=== PATIENT | male | born 1935 | race Caucasian/White ===

== ENCOUNTER → 2016-10-13 | Outpatient (CLI) | payer OTHER | LOC: LAB 15:25 | PROVIDERS: ATTEND Internal Medicine | DX: L89.321 Pressure ulcer of left buttock, stage 1 (principal); L89.311 Pressure ulcer of right buttock, stage 1 | CPT/HCPCS: 87070; 87077; 87185; 87186; 87205 ==

== ENCOUNTER → 2016-11-03 | Outpatient (CLI) | payer OTHER | LOC: MMPC 10:00 | PROVIDERS: ATTEND Podiatrist Foot & Ankle Surgery | DX: L60.3 Nail dystrophy (principal); L84 Corns and callosities; E11.9 Type 2 diabetes mellitus without complications; S90.412A Abrasion, left great toe, initial encounter | CPT/HCPCS: 11055; 11755; G0463 ==

== ENCOUNTER 2016-12-14 11:11 | Inpatient (IN) | payer OTHER ==
[2016-12-14] MEDS ORDERED: NORMAL SALINE 10 ML SYRINGE FLUSH IVP PRN ×2 (11:31→17:14)
[2016-12-14] MEDS ORDERED: Sodium Chloride 0.9% 1,000 ML PRIMARY IV ONE (11:34)
--- NOTE | 2016-12-14 11:51 | EKG ---
[address] [address] Measurements Intervals [place] Rate: 57 P: 65 MS: 213 QRS: -49 QRSD: 110 T: 10 QT: 432 QTc: 427 Interpretive Statements SINUS BRADYCARDIA WITH FIRST DEGREE AV BLOCK MARKED LEFT AXIS DEVIATION NONSPECIFIC T-WAVE ABNORMALITY Compared to ECG 06/02/2016 00:24:27 Sinus rhythm no longer present Intraventricular conduction delay no longer present Possible ischemia no longer present T-wave abnormality still present Electronically Signed On 12-14-16 12:59:00 MDT by Dmitri Murillo [email or web address]
[2016-12-14 11:58] LABS: HEMATOCRIT 42.9 % (42.0-52.0); MEAN CORPUSCULAR HEMOGLOBIN 30.2 PG (27-31); MEAN CORPUSCULAR HGB CONC 32.6 g/dL (33-37); MEAN CORPUSCULAR VOLUME 92.5 FL (80-90); MEAN PLATELET VOLUME 10.7 FL (7.4-12.2); RED BLOOD COUNT 4.64 10^6/uL (4.70-6.10)
[2016-12-14 12:08] LABS: BUN/CREATININE RATIO 25.38 (6-20); CALCIUM 9.5 mg/dL (8.7-10.7); SERUM ALBUMIN 3.9 g/dL (3.5-4.8)
[2016-12-14 12:14] LABS: BAND NEUTROPHILS % 0 % (0-10); BASOPHILS % (MANUAL) 0 % (0-1); EOSINOPHILS % (MANUAL) 2 % (0-8); LYMPHOCYTES % (MANUAL) 20 % (10-50); MONOCYTES % (MANUAL) 14 % (0-12); NEUTROPHILS % (MANUAL) 64 % (50-80); PLATELET MORPHOLOGY COMMENT NORMAL MORPHOLOGY (NORM); RBC MORPHOLOGY COMMENT NORMAL MORPHOLOGY (NORM); WBC MORPHOLOGY COMMENT NORMAL MORPHOLOGY (NORM)
--- NOTE | 2016-12-14 12:39 | DI ---
HISTORY: Fall, confusion. FINDINGS: Mild cardiomegaly is noted with atheromatous changes of the dorsal aorta. There is sligh t accentuation of the pulmonary vasculature in both lung bases. The lung amaya are otherwise essent ially clear. IMPRESSION: 1. Slight accentuation of the pulmonary vasculature bilateral lung bases.
--- NOTE | 2016-12-14 12:43 | DI ---
HISTORY: Pain after fall. FINDINGS: Examination reveals demineralization and degenerative arthritic changes. There is evidenc e of old left hip pinning. There is no definite evidence of recent fracture or dislocation. IMPRESSION: 1. No displaced acute fractures identified. If symptoms should persist, a follow up examination is suggested.
--- NOTE | 2016-12-14 14:59 | DI ---
HISTORY: Pain after fall. FINDINGS: Examination reveals demineralization and degenerative arthritic changes. There is no def inite evidence of recent fracture or dislocation. IMPRESSION: 1. No acute fractures identified.q
--- NOTE | 2016-12-14 15:01 | DI ---
HISTORY: Pain after fall. FINDINGS: Examination reveals mild soft tissue swelling. There are mild degenerative arthritic wang ges with no definite evidence of recent fracture or dislocation. IMPRESSION: 1. Mild soft tissue swelling without acute fracture.
--- NOTE | 2016-12-14 15:02 | DI ---
HISTORY: Pain after fall. FINDINGS: Examination reveals mild soft tissue swelling. There is no definite evidence of recent fr acture or dislocation. IMPRESSION: 1. Mild soft tissue swelling without acute fracture.
--- NOTE | 2016-12-14 15:05 | DI ---
HISTORY: Pain after fall. FINDINGS: Examination reveals soft tissue swelling. There is no definite evidence of recent fractur e or dislocation. IMPRESSION: 1. Soft tissue swelling without acute fracture. If symptoms should persist a follow up examination after a suitable period of immobilization is suggested.
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
[2016-12-14 15:48] LABS: COLOR,URINE YELLOW; URINE SAMPLE TYPE CATH SPECIMEN
[2016-12-14 15:49] LABS: BILIRUBIN,URINE NEGATIVE (NEG); CLARITY,URINE CLEAR (CLEAR); GLUCOSE, URINE (UA) >=1000 mg/dL (NEG); NITRATE,URINE NEGATIVE (NEG); OCCULT BLOOD,URINE NEGATIVE (NEG); PROTEIN,URINE 100 mg/dl (NEG)
[2016-12-14 15:50] LABS: RBC,URINE 0-3 /hpf; UROBILINOGEN,URINE 0.2 EU/dL (0.2)
[2016-12-14] MEDS ORDERED: INSULIN REGULAR, HUMAN 100 UNIT/1 ML - 3 ML IV ONE (15:52)
[2016-12-14] MEDS ORDERED: Insulin Detemir 300unit/3ml Flexpen SUBCUT ONE (15:54)
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
[2016-12-14] MEDS ORDERED: LORazepam 2 MG/1 ML VIAL ONE (16:37)
[2016-12-14] MEDS ORDERED: LORazepam 2 MG/1 ML VIAL IVP ONE ×2 (16:40→16:45)
[2016-12-14] MEDS ORDERED: HALOPERIDOL LACTATE 5 MG/1 ML AMPULE IVP ONE (16:47)
--- NOTE | 2016-12-14 16:49 | DI ---
HISTORY: Likely right hip fracture. PREVIOUS EXAM: None at this facility. TECHNIQUE: Multiple helically acquired CT images are obtained through the pelvis without contrast. FINDINGS: CT images demonstrate a right intertrochanteric fracture through the right proximal femur with mild comminution and mild displacement. The superior and inferior pubic rami are intact except for some enthesopathy. There is an old left femoral neck fracture with a dynamic compression screw in place. A Das catheter is seen within the urinary bladder. Degenerative changes of the sacroiliac joints and lower lumbar spine are noted. IMPRESSION: 1. Slightly displaced and comminuted fracture through the right proximal femoral intertrochanteric f racture.
[2016-12-14] MEDS ORDERED: HALOPERIDOL 5 MG TABLET PO ONE (16:50)
[2016-12-14] MEDS ORDERED: LIDOCAINE W/ SODIUM BICARB 0.5 ML SYR SUBD PRN (17:14)
[2016-12-14] MEDS ORDERED: HYDROcodone-APAP 5 MG -325 MG TABLET PO PRN (17:21)
[2016-12-14] MEDS ORDERED: LORazepam 2 MG/1 ML VIAL IVP PRN (17:28)
[2016-12-14] MEDS: Sodium Chloride 0.9% 1,000 ML PRIMARY IV SCH (18:15)
[2016-12-14] MEDS ORDERED: TAMSULOSIN 0.4 MG CAPSULE PO SCH (21:00)
[2016-12-14] MEDS: HYDROmorphone 2 MG/1 ML IVP PRN (21:35)
[2016-12-15] MEDS: HYDROmorphone 2 MG/1 ML IVP PRN ×2 (04:03→08:13)
[2016-12-15 05:01] LABS: BASOPHILS # (AUTO) 0.09 10*3/UL; BASOPHILS % (AUTO) 0.7 % (0-1); EOSINOPHILS # (AUTO) 0.23 10*3/UL; EOSINOPHILS % (AUTO) 1.9 % (0-8); HEMATOCRIT 38.2 % (42.0-52.0); HEMOGLOBIN 12.6 g/dL (14.0-18.0); LYMPHOCYTES # (AUTO) 1.57 10*3/uL; MEAN CORPUSCULAR HEMOGLOBIN 30.4 PG (27-31); MEAN PLATELET VOLUME 11.4 FL (7.4-12.2); MONOCYTES # (AUTO) 1.49 10*3/UL (0.3-0.8); MONOCYTES % (AUTO) 12.3 % (5-15); NEUTROPHILS # (AUTO) 8.72 10*3/UL; NEUTROPHILS % (AUTO) 71.9 % (50-80); RED BLOOD COUNT 4.15 10^6/uL (4.70-6.10)
[2016-12-15 05:02] LABS: PLATELET MORPHOLOGY COMMENT NORMAL MORPHOLOGY (NORM); RBC MORPHOLOGY COMMENT NORMAL MORPHOLOGY (NORM); WBC MORPHOLOGY COMMENT NORMAL MORPHOLOGY (NORM)
[2016-12-15] MEDS: Sodium Chloride 0.9% 1,000 ML PRIMARY IV SCH ×2 (05:05→16:58)
[2016-12-15 05:22] LABS: BUN/CREATININE RATIO 26.66 (6-20)
[2016-12-15] MEDS ORDERED: LEVOTHYROXINE 25 MCG TABLET PO SCH (05:30)
--- NOTE | 2016-12-15 07:55 | PDOC(PROG) ---
Date and Time of Service: 12/15/2016 7:54 AM Interval History: Subjective Patient did need some Ativan during the night, today he still wants to get up despite our attempt to explain to him that he has a broken hip. We gave him Ativan to calm him down. Objective : Data - Labs CBC and BMP: 12/15/16 04:13 12/15/16 04:13 Labs - Last 24 Hours: Laboratory Results 12/15/16 Range/Units 04:13 WBC 12.14 H (4.8-10.8) 10^3/uL RBC 4.15 L (4.70-6.10) 10^6/uL Hgb 12.6 L (14.0-18.0) g/dL Hct 38.2 L (42.0-52.0) % MCV 92.0 H (80-90) FL MCH 30.4 (27-31) PG MCHC 33.0 (33-37) g/dL RDW Std Deviation 48.4 (39-50) fL RDW Coeff of Virgilio 14.8 H (11.5-14.5) % Plt Count 250 (140-350) 10*3/uL MPV 11.4 (7.4-12.2) FL Immature Gran % (Auto) 0.3 (0-5) % Neut % (Auto) 71.9 (50-80) % Lymph % (Auto) 12.9 (10-50) % [place] % (Auto) 12.3 (5-15) % Eos % (Auto) 1.9 (0-8) % Baso % (Auto) 0.7 (0-1) % Immature Gran # (Auto) 0.04 10*3/UL Neut # (Auto) 8.72 10*3/UL Lymph # (Auto) 1.57 10*3/uL [place] # (Auto) 1.49 H (0.3-0.8) 10*3/UL Eos # (Auto) 0.23 10*3/UL Baso # (Auto) 0.09 10*3/UL WBC Morphology Comment Normal morphology (NORM) Plt Morphology Comment Normal morphology (NORM) RBC Morph Comment Normal morphology (NORM) Sodium 141 (135-145) meq/L Potassium 4.6 (3.8-5.2) meq/L Chloride 108 (98-112) meq/L Carbon Dioxide 22 L (23-33) meq/L Anion Gap 11 (5-20) BUN 24 H (7-22) mg/dL Creatinine 0.9 (0.70-1.50) mg/dL Estimated GFR (>60 ml/min/1.73m(2)) BUN/Creatinine Ratio 26.66 H (6-20) Glucose 142 H (78-110) mg/dL Calculated Osmolality 297.0 H (267-292) mOsm/kg Calcium 9.0 (8.7-10.7) mg/dL Blood Type O NEGATIVE Antibody Screen Negative Objective : Exam - General Additional General Exam Details: Restless but is not as agitated as yesterday - Head Head Exam: Normal Inspection - Eye Eye Exam: Normal Appearance - ENT ENT Exam: Normal Exam - Neck Neck Exam: Normal Inspection - Respiratory Respiratory Exam: Clear to Auscultation - Bilaterally - Cardiovascular Cardiovascular Exam: RRR - GI/Abdominal GI/Abdominal Exam: Normal Bowel Sounds, Non Tender, Non Distended, Soft - Rectal Rectal Exam: Deferred - External Exam: Deferred - Extremities Additional Extremities Exam Details: No edema noted - Neurological Neurological Exam: Alert, CN II-XII Intact Additional Neurological Exam Details: Restless. Not as agitated as yesterday - Integumentary Integumentary Exam: Normal Color Assessment and Plan - Patient Problems (1) Hip fracture Current Visit: Yes Status: Acute Comment: He will have the surgery today. As I said in my notes he can proceed with surgery will deal with any complications if they develop postoperatively Qualifiers: Encounter type: initial encounter Fracture type: closed Laterality : right Qualifier Code(s): (S72.001A) Fracture of unspecified part of neck of right femur, initial encounter for closed fracture (2) Diabetes Current Visit: No Status: Acute Comment: He is on sliding scale continue (3) Dementia with behavioral disturbance Current Visit: Yes Status: Acute Comment: He is on Ativan as needed (4) Hypothyroidism Current Visit: Yes Status: Acute Comment: Resume his levothyroxin postsurgery
--- NOTE | 2016-12-15 07:57 | ORTHO.CON ---
Consult Note - Consult Consult Date: 12/14/16 Reason for Consult: PreOp Consulation : Ortho (Consult for Dr. Tyler) Primary Care Provider: Leander Marie MD - History of Present Illness History of Present Illness: Patient is an 81-year-old male with severe dementia in the Alzheimer unit at [facility] who sustained a fall approximately 4 days prior to presenting to the emergency room. After continued pain and discomfort he is brought to the emergency room x-rays were taken the initial reading was no fracture but a CT scan was obtained which confirmed a fracture. He was admitted for further care and treatment. Patient has not been ambulatory and has been in a wheelchair for some time since his last surgery. Past Medical History Medical History: 1. Diabetes on insulin. 2. Dementia. 3. Hypertension. 4. Hypothyroidism Surgical History: 1. Surgery for displaced left subtrochanteric hip fracture in May 2016 Pertinent Family History: unknown Tobacco Use: Former Smoker Substance Use Type: None Alcohol Use: None Medication / Allergies Home Medications: Home Medications Medication Instructions Recorded Confirmed Type Acetaminophen [Tylenol] 1 - 2 tab PO Q4-6H PRN tab 11/15/14 12/14/16 History Losartan Potassium 1 tab PO QD tab 03/06/15 12/14/16 History Dextran 70/Hypromellose/Pf [Tears 1 drp OP QID PRN #1 bottle 09/16/15 12/14/16 Clinic Naturale Free Drops] Tamsulosin HCl 1 cap PO QHS cap 12/05/15 12/14/16 History Loratadine 1 tab PO QD tab 01/07/16 12/14/16 History Insulin Aspart [Novolog] 20 unit SUBCUT TID vial 04/20/16 12/14/16 History Docusate Sodium [Colace] 1 cap PO BID cap 06/09/16 12/14/16 History Ferrous Sulfate [Feosol] 325 mg PO DAILY tab 06/09/16 12/14/16 Rx HYDROcodone/APAP 5/325 Tab [[place] 1 - 2 tab PO Q4H PRN #25 tab 06/09/16 Rx 5/325 Tab] Insulin Detemir [Levemir Flextouch] 25 unit SUBCUT QD unit 06/09/16 12/14/16 History Magnesium Hydroxide [Milk Of 30 ml PO QD PRN ml 06/09/16 12/14/16 History Magnesia] Multivitamin Tab [Thera Tab] 1 tab PO DAILY tab 06/09/16 12/14/16 Rx Sitagliptin Phosphate [Januvia] 100 mg PO DAILY #1 tablet 06/09/16 12/14/16 Rx Levothyroxine Sodium 1 tab PO DAILY #30 tab 08/19/16 12/14/16 Clinic Ranitidine HCl 150 mg PO QD #30 cap 09/29/16 12/14/16 Clinic Amoxicillin 250 mg PO TID 12/14/16 12/14/16 History Mupirocin Ointment 2% [Bactroban 22 applic TOPICAL PRN PRN 12/14/16 12/14/16 History Ointment 2%] Sulfameth/Trimeth 800/160 Tab 1 each PO BID 12/14/16 12/14/16 History [Bactrim DS 800/160 Tab] Allergies/Adverse Reactions: Allergies Allergy/AdvReac Type Severity Reaction Status Date / Time lactose Allergy DIARRHEA Verified 12/14/16 18:48 Exam - - Exam: Examination shows that the patient has well-healed incisions on the left than the right he has no marked deformity to the leg but with movement of the leg has pain and discomfort he has limited motion of the toes and ankle secondary pain and limited motion of the knee secondary pain on no effusion of the knee. He seems to grimace a little with palpation around the right hip. Patient is alert however he is not oriented and cannot follow simple commands and at times seems agitated. Laboratory Results 12/14/16 12/14/16 12/15/16 Range/Units 11:53 15:35 04:13 WBC 10.84 H 12.14 H (4.8-10.8) 10^3/uL RBC 4.64 L 4.15 L (4.70-6.10) 10^6/uL Hgb 14.0 12.6 L (14.0-18.0) g/dL Hct 42.9 38.2 L (42.0-52.0) % MCV 92.5 H 92.0 H (80-90) FL MCH 30.2 30.4 (27-31) PG MCHC 32.6 L 33.0 (33-37) g/dL RDW Std Deviation 49.2 48.4 (39-50) fL RDW Coeff of Virgilio 15.0 H 14.8 H (11.5-14.5) % Plt Count 257 250 (140-350) 10*3/uL MPV 10.7 11.4 (7.4-12.2) FL Immature Gran % (Auto) 0.3 (0-5) % Neut % (Auto) 71.9 (50-80) % Lymph % (Auto) 12.9 (10-50) % [place]ess % (Auto) 12.3 (5-15) % Eos % (Auto) 1.9 (0-8) % Baso % (Auto) 0.7 (0-1) % Immature Gran # (Auto) 0.04 10*3/UL Neut # (Auto) 8.72 10*3/UL Lymph # (Auto) 1.57 10*3/uL [place] # (Auto) 1.49 H (0.3-0.8) 10*3/UL Eos # (Auto) 0.23 10*3/UL Baso # (Auto) 0.09 10*3/UL Neutrophils % (Manual) 64 (50-80) % Band Neutrophils % 0 (0-10) % Lymphocytes % (Manual) 20 (10-50) % Monocytes % (Manual) 14 H (0-12) % Eosinophils % (Manual) 2 (0-8) % Basophils % (Manual) 0 (0-1) % Metamyelocytes % Not Reportable Myelocytes % Not Reportable Promyelocytes % Not Reportable Blast Cells Not Reportable WBC Morphology Comment Normal morphology Normal morphology (NORM) Plt Morphology Comment Normal morphology Normal morphology (NORM) RBC Morph Comment Normal morphology Normal morphology (NORM) PT 10.2 (9.7-11.4) secs INR 0.99 (0.00-5.90) N/A Sodium 141 141 (135-145) meq/L Potassium 4.6 4.6 (3.8-5.2) meq/L Chloride 101 108 (98-112) meq/L Carbon Dioxide 26 22 L (23-33) meq/L Anion Gap 14 11 (5-20) BUN 33 H 24 H (7-22) mg/dL Creatinine 1.3 0.9 (0.70-1.50) mg/dL Estimated GFR (>60 ml/min/1.73m(2)) BUN/Creatinine Ratio 25.38 H 26.66 H (6-20) Glucose 252 H 142 H (78-110) mg/dL Calculated Osmolality 307.0 H 297.0 H (267-292) mOsm/kg Calcium 9.5 9.0 (8.7-10.7) mg/dL Total Bilirubin 0.5 (0.3-1.2) mg/dL AST 14 L (21-57) IU/L ALT 21 (21-72) IU/L Alkaline Phosphatase 185 H (38-126) IU/L Total Protein 7.3 (6.1-8.0) g/dL Albumin 3.9 (3.5-4.8) g/dL Globulin 3.4 (2.50-4.10) g/dL Albumin/Globulin Ratio 1.10 L (1.3-2.0) mg/g Ur Collection Type Cath specimen Urine Color Yellow Urine Clarity Clear (CLEAR) Urine pH 6.0 (5.0-8.5) Ur Specific Ashley 1.020 (1.005-1.030) Urine Protein 100 (NEG) mg/dl Urine Glucose (UA) >=1000 (NEG) mg/dL Urine Ketones Trace (NEG) Urine Occult Blood Negative (NEG) Urine Nitrate Negative (NEG) Urine Bilirubin Negative (NEG) Urine Urobilinogen 0.2 (0.2) EU/dL Ur Leukocyte Esterase Negative (NEG) Urine RBC 0-3 (NONE) /hpf Urine WBC None (NONE) Ur Squamous Epith Cells None (NONE) Ur Renal Epithelial Cell None (NONE) Urine Crystals None Urine Bacteria None (NONE) Urine Casts None (NONE) Urine Mucus None (NONE) Urine Trichomonas None (NONE) Urine Yeast None (NONE) Ur Culture Indicated? Culture not set Blood Type O NEGATIVE Antibody Screen Negative - Vitals Vital Signs: Vital Signs Temperature 98.7 F Temperature Source Temporal Artery Scan Pulse Rate [Pulse Oximeter] 73 Pulse Rate 62 Respiratory Rate 20 Blood Pressure [Right Arm] 121/51 Blood Pressure 150/80 Pulse Ox 93 Oxygen Delivery Method Room Air Height 5 ft 11 in Weight 77.292 kg Results - Labs CBC and BMP: 12/15/16 04:13 12/15/16 04:13 Labs - Last 24 Hours: Laboratory Results 12/15/16 Range/Units 04:13 WBC 12.14 H (4.8-10.8) 10^3/uL RBC 4.15 L (4.70-6.10) 10^6/uL Hgb 12.6 L (14.0-18.0) g/dL Hct 38.2 L (42.0-52.0) % MCV 92.0 H (80-90) FL MCH 30.4 (27-31) PG MCHC 33.0 (33-37) g/dL RDW Std Deviation 48.4 (39-50) fL RDW Coeff of Virgilio 14.8 H (11.5-14.5) % Plt Count 250 (140-350) 10*3/uL MPV 11.4 (7.4-12.2) FL Immature Gran % (Auto) 0.3 (0-5) % Neut % (Auto) 71.9 (50-80) % Lymph % (Auto) 12.9 (10-50) % Ness % (Auto) 12.3 (5-15) % Eos % (Auto) 1.9 (0-8) % Baso % (Auto) 0.7 (0-1) % Immature Gran # (Auto) 0.04 10*3/UL Neut # (Auto) 8.72 10*3/UL Lymph # (Auto) 1.57 10*3/uL Ness # (Auto) 1.49 H (0.3-0.8) 10*3/UL Eos # (Auto) 0.23 10*3/UL Baso # (Auto) 0.09 10*3/UL WBC Morphology Comment Normal morphology (NORM) Plt Morphology Comment Normal morphology (NORM) RBC Morph Comment Normal morphology (NORM) Sodium 141 (135-145) meq/L Potassium 4.6 (3.8-5.2) meq/L Chloride 108 (98-112) meq/L Carbon Dioxide 22 L (23-33) meq/L Anion Gap 11 (5-20) BUN 24 H (7-22) mg/dL Creatinine 0.9 (0.70-1.50) mg/dL Estimated GFR (>60 ml/min/1.73m(2)) BUN/Creatinine Ratio 26.66 H (6-20) Glucose 142 H (78-110) mg/dL Calculated Osmolality 297.0 H (267-292) mOsm/kg Calcium 9.0 (8.7-10.7) mg/dL Blood Type O NEGATIVE Antibody Screen Negative Assessment and Plan - Assessment / Plan Additional Assessment/Plan Details: Impression: A right intertrochanteric hip fracture comminuted with some mild subtrochanteric extension but nondisplaced Advanced dementia Plan: We'll proceed with getting the patient set up for stabilization of the hip fracture with a cephalo-medullary nail. Patient had a similar process 6 months ago on the left. This is purely for comfort standpoint.
[2016-12-15] MEDS: Insulin Lispro Flexpen 300 UNIT/3 ML INSULN.PEN SUBCUT SCH ×4 (08:15→21:21)
[2016-12-15] MEDS ORDERED: Mupirocin Nasal Oint 2% 1 gm Tube ENOS SCH (09:00)
[2016-12-15] MEDS ORDERED: Chlorhexidine Gluc Soap 4% 15 ML LIQUID TOPICAL SCH (09:00)
[2016-12-15] MEDS ORDERED: Lactated Ringers 1,000 ML PRIMARY IV ONE (11:09)
[2016-12-15] MEDS ORDERED: ceFAZolin Inj 2gm (Premix) 50 ML IV ONE (11:11)
[2016-12-15] MEDS ORDERED: Sodium Chloride 0.9% 1,000 ML ONE (12:08)
[2016-12-15] MEDS ORDERED: BACITRACIN 50,000 UNIT VIAL IRRIG ONE (12:21)
[2016-12-15] MEDS ORDERED: Sodium Chloride 0.9% vial 20 ML ONE (12:21)
[2016-12-15] MEDS ORDERED: HYDROmorphone 2 MG/1 ML IVP PRN (12:25)
[2016-12-15] MEDS ORDERED: NORMAL SALINE 10 ML SYRINGE FLUSH IVP PRN (12:25)
[2016-12-15] MEDS ORDERED: MIDAZOLAM HCL 50 MG/10 ML VIAL IVP PRN (12:25)
[2016-12-15] MEDS ORDERED: Sodium Chloride 0.9% 1,000 ML PRIMARY IV SCH (12:30)
[2016-12-15] MEDS ORDERED: LIDOCAINE MPF 2% - 5 ML (20 MG/1 ML) ONE (12:37)
[2016-12-15] MEDS ORDERED: fentaNYL Inj 250 MCG/5 ML VIAL ONE (12:37)
[2016-12-15] MEDS ORDERED: MIDAZOLAM 5 MG/1 ML ONE (12:37)
[2016-12-15] MEDS ORDERED: Sodium Chloride 0.9% 0 ML IV ONE (12:54)
[2016-12-15] MEDS ORDERED: BUPIVACAINE 0.25% W/ EPI - 10 ML VIAL ONE (13:25)
[2016-12-15] MEDS ORDERED: KETAMINE 100 MG/1 ML - 5 ML ONE (13:39)
[2016-12-15] MEDS ORDERED: ePHEDrine Inj 50 MG/ML AMP ONE (13:41)
[2016-12-15] MEDS ORDERED: GLYCOPYRROLATE 0.2 MG/1 ML VIAL ONE (13:51)
[2016-12-15] MEDS ORDERED: CALCIUM CARBONATE 500 MG (TUMS) CHEWABLE TABLET PO PRN (16:52)
[2016-12-15] MEDS ORDERED: Prochlorperazine Tab 10 MG TAB PO PRN (16:52)
[2016-12-15] MEDS ORDERED: MAG HYDROX/AL HYDROX/SIMETH 30 ML SUSP PO PRN (16:52)
[2016-12-15] MEDS ORDERED: Mupirocin Ointment 2% 22 gm Tube TOPICAL PRN (16:52)
[2016-12-15] MEDS ORDERED: LORATADINE 10 MG TABLET PO SCH (16:52)
[2016-12-15] MEDS ORDERED: MAGNESIUM 400 MG/5 ML - 30 ML (MILK OF MAGNESIA) PO PRN (16:52)
[2016-12-15] MEDS ORDERED: BISACODYL 5 MG TABLET PO PRN (16:52)
[2016-12-15] MEDS ORDERED: diphenhydrAMINE 25 MG CAPSULE PO PRN (16:52)
[2016-12-15] MEDS ORDERED: Ondansetron ODT Tab 8 MG TAB PO PRN (16:52)
[2016-12-15] MEDS ORDERED: IBUPROFEN 400 MG TABLET PO PRN (16:52)
[2016-12-15] MEDS ORDERED: BISACODYL 10 MG SUPPOSITORY RECTAL PRN (16:52)
[2016-12-15] MEDS ORDERED: ONDANSETRON 4 MG/2 ML VIAL IVP PRN (16:52)
[2016-12-15] MEDS ORDERED: Non-Formulary Drug (Losartan Potassium [Losartan Potassium] 1 TAB) PO SCH (16:52)
[2016-12-15] MEDS: Lactated Ringers 1,000 ML PRIMARY IV SCH (17:30)
[2016-12-15] MEDS ORDERED: LORazepam 2 MG/1 ML VIAL IVP PRN (18:38)
[2016-12-15] MEDS ORDERED: Insulin Detemir 300unit/3ml Flexpen SUBCUT SCH (21:00)
[2016-12-15] MEDS ORDERED: AMOXICILLIN 500 MG CAPSULE PO SCH (21:00)
[2016-12-15] MEDS ORDERED: INSULIN ASPART 20 UNIT SUBCUT SCH (21:00)
[2016-12-15] MEDS ORDERED: SULFAMETHOXAZOLE/TRIMETHOPRIM 800/160 MG TABLET PO SCH (21:00)
[2016-12-15] MEDS ORDERED: DOCUSATE 100 MG CAPSULE PO SCH (21:00)
[2016-12-15] MEDS: ceFAZolin Inj 2gm (Premix) 2 GM in Dextrose 1 BAG IV SCH (21:19)
[2016-12-15] MEDS: Mupirocin Nasal Oint 2% 1 gm Tube ENOS SCH (21:19)
[2016-12-15] MEDS: Insulin Detemir 300unit/3ml Flexpen SUBCUT SCH (21:21)
[2016-12-15] MEDS: MORPHINE SULFATE 2 MG/1 ML IVP PRN ×2 (21:36→23:10)
[2016-12-15] MEDS: DOCUSATE 100 MG CAPSULE PO SCH (21:53)
[2016-12-16] MEDS: Lactated Ringers 1,000 ML PRIMARY IV SCH ×3 (01:40→11:22)
[2016-12-16] MEDS: MORPHINE SULFATE 2 MG/1 ML IVP PRN ×6 (02:22→23:17)
[2016-12-16] MEDS: ceFAZolin Inj 2gm (Premix) 2 GM in Dextrose 1 BAG IV SCH (04:41)
[2016-12-16 04:49] LABS: BASOPHILS # (AUTO) 0.11 10*3/UL; BASOPHILS % (AUTO) 0.8 % (0-1); EOSINOPHILS # (AUTO) 0.16 10*3/UL; EOSINOPHILS % (AUTO) 1.2 % (0-8); HEMATOCRIT 35.3 % (42.0-52.0); HEMOGLOBIN 11.7 g/dL (14.0-18.0); LYMPHOCYTES # (AUTO) 1.24 10*3/uL; MEAN CORPUSCULAR HEMOGLOBIN 30.4 PG (27-31); MEAN CORPUSCULAR HGB CONC 33.1 g/dL (33-37); MEAN CORPUSCULAR VOLUME 91.7 FL (80-90); MEAN PLATELET VOLUME 11.1 FL (7.4-12.2); MONOCYTES % (AUTO) 10.4 % (5-15); NEUTROPHILS # (AUTO) 10.53 10*3/UL; RED BLOOD COUNT 3.85 10^6/uL (4.70-6.10)
[2016-12-16 04:52] LABS: PLATELET MORPHOLOGY COMMENT NORMAL MORPHOLOGY (NORM); RBC MORPHOLOGY COMMENT NORMAL MORPHOLOGY (NORM); WBC MORPHOLOGY COMMENT NORMAL MORPHOLOGY (NORM)
[2016-12-16 04:54] LABS: BUN/CREATININE RATIO 21.11 (6-20); CALCIUM 8.4 mg/dL (8.7-10.7)
[2016-12-16] MEDS: Insulin Lispro Flexpen 300 UNIT/3 ML INSULN.PEN SUBCUT SCH ×4 (08:26→21:55)
--- NOTE | 2016-12-16 08:49 | CRNA.PROGR ---
Anesthesia Note Anesthesia Progress Note: Resting in bed. did not awaken due to his mental status. Laboratory Results 12/16/16 Range/Units 04:18 WBC 13.49 H (4.8-10.8) 10^3/uL RBC 3.85 L (4.70-6.10) 10^6/uL Hgb 11.7 L (14.0-18.0) g/dL Hct 35.3 L (42.0-52.0) % MCV 91.7 H (80-90) FL MCH 30.4 (27-31) PG MCHC 33.1 (33-37) g/dL RDW Std Deviation 47.1 (39-50) fL RDW Coeff of Virgilio 14.4 (11.5-14.5) % Plt Count 238 (140-350) 10*3/uL MPV 11.1 (7.4-12.2) FL Immature Gran % (Auto) 0.4 (0-5) % Neut % (Auto) 78.0 (50-80) % Lymph % (Auto) 9.2 L (10-50) % [place] % (Auto) 10.4 (5-15) % Eos % (Auto) 1.2 (0-8) % Baso % (Auto) 0.8 (0-1) % Immature Gran # (Auto) 0.05 10*3/UL Neut # (Auto) 10.53 10*3/UL Lymph # (Auto) 1.24 10*3/uL [place] # (Auto) 1.40 H (0.3-0.8) 10*3/UL Eos # (Auto) 0.16 10*3/UL Baso # (Auto) 0.11 10*3/UL WBC Morphology Comment Normal morphology (NORM) Plt Morphology Comment Normal morphology (NORM) RBC Morph Comment Normal morphology (NORM) Sodium 137 (135-145) meq/L Potassium 4.2 (3.8-5.2) meq/L Chloride 107 (98-112) meq/L Carbon Dioxide 24 (23-33) meq/L Anion Gap 6 (5-20) BUN 19 (7-22) mg/dL Creatinine 0.9 (0.70-1.50) mg/dL Estimated GFR (>60 ml/min/1.73m(2)) BUN/Creatinine Ratio 21.11 H (6-20) Glucose 179 H (78-110) mg/dL Calculated Osmolality 289.0 (267-292) mOsm/kg Calcium 8.4 L (8.7-10.7) mg/dL Labs appear acceptable. No apparent anesthetic difficulties.
--- NOTE | 2016-12-16 08:59 | DI ---
HISTORY: Tachypnea. COMPARISON: None available. FINDINGS: Mild cardiomegaly is noted with atheromatous changes of the dorsal aorta. There appears t o be an early infiltrate in the left lung base. The lung amaya are otherwise essentially clear. IMPRESSION: 1. Mild cardiomegaly is noted with atheromatous changes of the dorsal aorta. 2. There appears to be an early infiltrate in the left lung base. Clinical correlation is requested.
[2016-12-16] MEDS ORDERED: sitaGLIPtin Tab 100 MG TAB PO SCH (09:00)
[2016-12-16] MEDS: DOCUSATE 100 MG CAPSULE PO SCH ×2 (10:36→21:52)
[2016-12-16] MEDS: FERROUS SULFATE 325 MG TABLET PO SCH (10:37)
[2016-12-16] MEDS: ASPIRIN 325 MG EC TABLET PO SCH ×2 (10:37→21:52)
[2016-12-16] MEDS: LORATADINE 10 MG TABLET PO SCH (10:37)
[2016-12-16] MEDS: LOSARTAN 50 MG TABLET PO SCH (10:37)
[2016-12-16] MEDS: Multivitamin Tab 1 TAB PO SCH (10:37)
[2016-12-16] MEDS: Mupirocin Nasal Oint 2% 1 gm Tube ENOS SCH ×2 (10:43→21:53)
[2016-12-16] MEDS ORDERED: Vancomycin-PHA to Dose IV PRN (12:03)
[2016-12-16] MEDS ORDERED: Sodium Chloride 0.9% 100 ML IV ONE (12:18)
[2016-12-16] MEDS: ACETAMINOPHEN 325 MG TABLET PO PRN (12:18)
[2016-12-16] MEDS: Piperacillin/Tazobactam Inj 3.375 GM in Sodium Chloride 0.9% 100 ML IV SCH ×2 (12:28→17:16)
--- NOTE | 2016-12-16 15:43 | PDOC(PROG) ---
Date and Time of Service: 12/16/2016 Interval History: Subjective Patient is sedated, he mumbles but I can not understand him. he is tachypenic. Objective : Data - Labs CBC and BMP: 12/16/16 04:18 12/16/16 04:18 Labs - Last 24 Hours: Laboratory Results 12/16/16 Range/Units 04:18 WBC 13.49 H (4.8-10.8) 10^3/uL RBC 3.85 L (4.70-6.10) 10^6/uL Hgb 11.7 L (14.0-18.0) g/dL Hct 35.3 L (42.0-52.0) % MCV 91.7 H (80-90) FL MCH 30.4 (27-31) PG MCHC 33.1 (33-37) g/dL RDW Std Deviation 47.1 (39-50) fL RDW Coeff of Virgilio 14.4 (11.5-14.5) % Plt Count 238 (140-350) 10*3/uL MPV 11.1 (7.4-12.2) FL Immature Gran % (Auto) 0.4 (0-5) % Neut % (Auto) 78.0 (50-80) % Lymph % (Auto) 9.2 L (10-50) % [place] % (Auto) 10.4 (5-15) % Eos % (Auto) 1.2 (0-8) % Baso % (Auto) 0.8 (0-1) % Immature Gran # (Auto) 0.05 10*3/UL Neut # (Auto) 10.53 10*3/UL Lymph # (Auto) 1.24 10*3/uL [place] # (Auto) 1.40 H (0.3-0.8) 10*3/UL Eos # (Auto) 0.16 10*3/UL Baso # (Auto) 0.11 10*3/UL WBC Morphology Comment Normal morphology (NORM) Plt Morphology Comment Normal morphology (NORM) RBC Morph Comment Normal morphology (NORM) Sodium 137 (135-145) meq/L Potassium 4.2 (3.8-5.2) meq/L Chloride 107 (98-112) meq/L Carbon Dioxide 24 (23-33) meq/L Anion Gap 6 (5-20) BUN 19 (7-22) mg/dL Creatinine 0.9 (0.70-1.50) mg/dL Estimated GFR (>60 ml/min/1.73m(2)) BUN/Creatinine Ratio 21.11 H (6-20) Glucose 179 H (78-110) mg/dL Calculated Osmolality 289.0 (267-292) mOsm/kg Calcium 8.4 L (8.7-10.7) mg/dL Objective : Exam - General Additional General Exam Details: sedated, tachypenic, warm to touch - Head Head Exam: Normal Inspection - Eye Eye Exam: Normal Appearance - ENT ENT Exam: Normal Exam - Neck Neck Exam: Normal Inspection - Respiratory Additional Respiratory Exam Details: crackles heard in the left lung base - Cardiovascular Cardiovascular Exam: RRR - GI/Abdominal GI/Abdominal Exam: Normal Bowel Sounds, Non Tender, Non Distended, Soft - Rectal Rectal Exam: Deferred - External Exam: Deferred - Extremities Extremities Exam: Normal Inspection - Neurological Additional Neurological Exam Details: sedated - Integumentary Integumentary Exam: Warm Assessment and Plan - Patient Problems (1) Hip fracture Current Visit: Yes Status: Acute Comment: Day one post surgery. He is still sedated. will do chest x ray to R/O infection. For DVT prophylaxis will use Lovenox. will try to use less sedation hopefully he will not be as agitated as before. Qualifiers: Encounter type: initial encounter Fracture type: closed Laterality : right Qualifier Code(s): (S72.001A) Fracture of unspecified part of neck of right femur, initial encounter for closed fracture (2) Diabetes Current Visit: No Status: Acute Comment: continue sliding scale. (3) Dementia with behavioral disturbance Current Visit: Yes Status: Acute Comment: will try to use less ativan (4) Hypothyroidism Current Visit: Yes Status: Acute Comment: same med once he is more awake
--- NOTE | 2016-12-16 17:01 | ORTHO.PROG ---
Last Taken Vital Signs: Vital Signs - Last Taken Temperature 99.6 F 12/16/16 15:46 Pulse Rate 76 12/16/16 15:46 Respiratory Rate 24 12/16/16 15:46 Blood Pressure 129/63 12/16/16 15:46 Pulse Ox 92 12/16/16 15:46 Subjective: Patient very quiet this a.m. did not appear to be is significantly agitated as yesterday did not answer simple questions. Seems to be comfortable Objective: Examination shows that his leg has a mild amount of swelling there is no significant ecchymosis there is no redness or erythema. Patient did have a little irritation on his left trochanteric region around the previous incision was some mild redness no skin breakdown at the current time. Generally appears to have intact motor and sensory was stimulation but limited exertion. Laboratory Results 12/16/16 Range/Units 04:18 WBC 13.49 H (4.8-10.8) 10^3/uL RBC 3.85 L (4.70-6.10) 10^6/uL Hgb 11.7 L (14.0-18.0) g/dL Hct 35.3 L (42.0-52.0) % MCV 91.7 H (80-90) FL MCH 30.4 (27-31) PG MCHC 33.1 (33-37) g/dL RDW Std Deviation 47.1 (39-50) fL RDW Coeff of Virgilio 14.4 (11.5-14.5) % Plt Count 238 (140-350) 10*3/uL MPV 11.1 (7.4-12.2) FL Immature Gran % (Auto) 0.4 (0-5) % Neut % (Auto) 78.0 (50-80) % Lymph % (Auto) 9.2 L (10-50) % [place] % (Auto) 10.4 (5-15) % Eos % (Auto) 1.2 (0-8) % Baso % (Auto) 0.8 (0-1) % Immature Gran # (Auto) 0.05 10*3/UL Neut # (Auto) 10.53 10*3/UL Lymph # (Auto) 1.24 10*3/uL [place] # (Auto) 1.40 H (0.3-0.8) 10*3/UL Eos # (Auto) 0.16 10*3/UL Baso # (Auto) 0.11 10*3/UL WBC Morphology Comment Normal morphology (NORM) Plt Morphology Comment Normal morphology (NORM) RBC Morph Comment Normal morphology (NORM) Sodium 137 (135-145) meq/L Potassium 4.2 (3.8-5.2) meq/L Chloride 107 (98-112) meq/L Carbon Dioxide 24 (23-33) meq/L Anion Gap 6 (5-20) BUN 19 (7-22) mg/dL Creatinine 0.9 (0.70-1.50) mg/dL Estimated GFR (>60 ml/min/1.73m(2)) BUN/Creatinine Ratio 21.11 H (6-20) Glucose 179 H (78-110) mg/dL Calculated Osmolality 289.0 (267-292) mOsm/kg Calcium 8.4 L (8.7-10.7) mg/dL Intake and Output - 8hrs 12/15/16 12/16/16 12/16/16 12/16/16 21:59 05:59 13:59 21:59 Intake: IV 1700 1339 1494 Intake Oral Amount 25 100 Output: Output, Urinary Catheter 550 600 500 Amount Output, Urine Amount 400 Output, Estimated Blood 250 Loss Amount Other: Percent Meal Consumed patient lethargic from surgery Assessment: Patient with right cephalo-medullary nail for proximal femur fracture/per trochanteric Plan: Patient will be immobilized most likely bed to wheelchair for mobilization prior to his presentation the history that he was no longer ambulatory and was using a wheelchair and I suspect that this will be his mobilization technique. We will follow him along while is in the hospital currently of the current time things look good.
[2016-12-16] MEDS: NORMAL SALINE 10 ML SYRINGE FLUSH IVP PRN (19:21)
[2016-12-16] MEDS: Insulin Detemir 300unit/3ml Flexpen SUBCUT SCH (21:52)
[2016-12-17] MEDS: Piperacillin/Tazobactam Inj 3.375 GM in Sodium Chloride 0.9% 100 ML IV SCH ×4 (01:07→17:15)
[2016-12-17] MEDS: Lactated Ringers 1,000 ML PRIMARY IV SCH ×4 (01:17→21:22)
[2016-12-17] MEDS: MORPHINE SULFATE 2 MG/1 ML IVP PRN (02:10)
[2016-12-17 04:49] LABS: BASOPHILS # (AUTO) 0.08 10*3/UL; BASOPHILS % (AUTO) 0.6 % (0-1); EOSINOPHILS # (AUTO) 0.68 10*3/UL; EOSINOPHILS % (AUTO) 4.8 % (0-8); HEMATOCRIT 34.9 % (42.0-52.0); HEMOGLOBIN 11.6 g/dL (14.0-18.0); LYMPHOCYTES # (AUTO) 1.66 10*3/uL; MEAN CORPUSCULAR HEMOGLOBIN 30.6 PG (27-31); MEAN CORPUSCULAR HGB CONC 33.2 g/dL (33-37); MEAN CORPUSCULAR VOLUME 92.1 FL (80-90); MEAN PLATELET VOLUME 10.8 FL (7.4-12.2); MONOCYTES # (AUTO) 1.91 10*3/UL (0.3-0.8); MONOCYTES % (AUTO) 13.5 % (5-15); NEUTROPHILS # (AUTO) 9.78 10*3/UL; NEUTROPHILS % (AUTO) 69.1 % (50-80); RED BLOOD COUNT 3.79 10^6/uL (4.70-6.10)
[2016-12-17 04:57] LABS: PLATELET MORPHOLOGY COMMENT NORMAL MORPHOLOGY (NORM); RBC MORPHOLOGY COMMENT NORMAL MORPHOLOGY (NORM); WBC MORPHOLOGY COMMENT NORMAL MORPHOLOGY (NORM)
[2016-12-17 04:58] LABS: BUN/CREATININE RATIO 24.28 (6-20); CALCIUM 8.4 mg/dL (8.7-10.7)
[2016-12-17] MEDS: Insulin Lispro Flexpen 300 UNIT/3 ML INSULN.PEN SUBCUT SCH ×4 (06:49→22:51)
[2016-12-17] MEDS: LOSARTAN 50 MG TABLET PO SCH (06:50)
--- NOTE | 2016-12-17 08:14 | PDOC(PROG) ---
Date and Time of Service: 12/17/2016 8:13 AM Interval History: Subjective Patient is arousable, he is calm, he would open his eyes in respons to verbal stimuli. When asked whether he is hungry he said yes. Otherwise no other information can be obtained from him. Objective : Data - Labs CBC and BMP: 12/17/16 04:29 12/17/16 04:29 Labs - Last 24 Hours: Laboratory Results 12/17/16 Range/Units 04:29 WBC 14.15 H (4.8-10.8) 10^3/uL RBC 3.79 L (4.70-6.10) 10^6/uL Hgb 11.6 L (14.0-18.0) g/dL Hct 34.9 L (42.0-52.0) % MCV 92.1 H (80-90) FL MCH 30.6 (27-31) PG MCHC 33.2 (33-37) g/dL RDW Std Deviation 46.5 (39-50) fL RDW Coeff of Virgilio 14.3 (11.5-14.5) % Plt Count 186 (140-350) 10*3/uL MPV 10.8 (7.4-12.2) FL Immature Gran % (Auto) 0.3 (0-5) % Neut % (Auto) 69.1 (50-80) % Lymph % (Auto) 11.7 (10-50) % [place] % (Auto) 13.5 (5-15) % Eos % (Auto) 4.8 (0-8) % Baso % (Auto) 0.6 (0-1) % Immature Gran # (Auto) 0.04 10*3/UL Neut # (Auto) 9.78 10*3/UL Lymph # (Auto) 1.66 10*3/uL [place] # (Auto) 1.91 H (0.3-0.8) 10*3/UL Eos # (Auto) 0.68 10*3/UL Baso # (Auto) 0.08 10*3/UL WBC Morphology Comment Normal morphology (NORM) Plt Morphology Comment Normal morphology (NORM) RBC Morph Comment Normal morphology (NORM) Sodium 139 (135-145) meq/L Potassium 3.8 (3.8-5.2) meq/L Chloride 107 (98-112) meq/L Carbon Dioxide 22 L (23-33) meq/L Anion Gap 10 (5-20) BUN 17 (7-22) mg/dL Creatinine 0.7 (0.70-1.50) mg/dL Estimated GFR (>60 ml/min/1.73m(2)) BUN/Creatinine Ratio 24.28 H (6-20) Glucose 123 H (78-110) mg/dL Calculated Osmolality 290.0 (267-292) mOsm/kg Calcium 8.4 L (8.7-10.7) mg/dL Objective : Exam - General General Appearance: No Acute Distress - Head Head Exam: Normal Inspection - Eye Eye Exam: Normal Appearance - ENT ENT Exam: Normal Exam - Neck Neck Exam: Normal Inspection - Respiratory Respiratory Exam: Clear to Auscultation - Bilaterally - Cardiovascular Cardiovascular Exam: RRR - GI/Abdominal GI/Abdominal Exam: Normal Bowel Sounds, Non Tender, Non Distended, Soft - Rectal Rectal Exam: Deferred - External Exam: Deferred - Extremities Extremities Exam: Normal Inspection - Back Back Exam: Normal Inspection - Neurological Additional Neurological Exam Details: Sleepy but arousable - Psychiatric Psychiatric Exam: Normal Affect Assessment and Plan - Patient Problems (1) Hip fracture Current Visit: Yes Status: Acute Comment: He is day 2 post surgery. He is more calm today I think compared to yesterday. And also more arousable. We'll start cutting back on his fluid and hopefully his by mouth intake will increase today. For DVT prophylaxis will put him on Lovenox for now, we may switch to aspirin only once he is more awake and fully taking his dosages. Qualifiers: Encounter type: initial encounter Fracture type: closed Laterality : right Qualifier Code(s): (S72.001A) Fracture of unspecified part of neck of right femur, initial encounter for closed fracture (2) Diabetes Current Visit: No Status: Acute Comment: I think will cut back on his Levemir as his blood sugar is trending lower. (3) Dementia with behavioral disturbance Current Visit: Yes Status: Acute Comment: More calm today I think will DC the Ativan (4) Hypothyroidism Current Visit: Yes Status: Acute Comment: will resume his med (5) Pneumonia Current Visit: No Status: Acute Comment: He was tachypneic when I saw him yesterday morning, we did a chest x- ray and that raised the possibility of early infiltrate on the left, we put him on antibiotics and I am treating him as a hospital-acquired/healthcare associated pneumonia. His breathing seems to be better today but his white count still elevated we will repeate tomorrow. Cultures still negative.
[2016-12-17] MEDS: ENOXAPARIN SODIUM 40 MG/0.4 ML SYRINGE SUBCUT SCH (08:56)
[2016-12-17] MEDS: DOCUSATE 100 MG CAPSULE PO SCH ×2 (08:56→21:18)
[2016-12-17] MEDS: Mupirocin Nasal Oint 2% 1 gm Tube ENOS SCH ×2 (08:56→21:19)
[2016-12-17] MEDS: Multivitamin Tab 1 TAB PO SCH (08:57)
[2016-12-17] MEDS: ASPIRIN 325 MG EC TABLET PO SCH ×2 (08:57→21:19)
[2016-12-17] MEDS: LORATADINE 10 MG TABLET PO SCH (08:57)
[2016-12-17] MEDS: FERROUS SULFATE 325 MG TABLET PO SCH (08:57)
[2016-12-17] MEDS ORDERED: Sodium Chloride 0.9% 100 ML IV ONE (13:22)
--- NOTE | 2016-12-17 17:33 | PT.PROG ---
Progress Note Progress Note: 12/17/2016 4:00-4:30 S: pt. stated he needed help, but did not specify what. It was difficult to communicate with him because he did not say much. He seemed to have some pain with movement. He has a pressure sore on his L lateral hip and on his L big toe. PMH: Diabetes, Dementia, Hyperthyroidism, hypertension, L hip surgery O: pt. was max assisted from supine to sit where he was able to maintain sitting balance for 3 min. He then was able to partially extend his L leg, but not his R. He was then max assist to stand and max assist while standing for 1 min. He then returned to seated and was max assist for a pivot transfer up the bed then max assist to supine. A: pt. has difficulty communicating and understanding what is being asked of him , although he does understand from time to time. His responses seem to be short. It will be best to communicate with as little words as possible. He is max assist on everything except sitting balance, but did put forth some effort in our tasks today. Problem list 1. troubles communicating 2. troubles with cognition 3. difficulty with come to sit 4. difficulty standing Short term goals 1. get him to say a full sentence before leaving 2. have him know where he is, when it is, and why he is here without prompting and communicate it 3. have him come to sit with min assist 4. have him stand with min assist. [facility] goals 1. able to communicate near normal subjectively 2. have him come to sit without assistance 3. stand without assistance Treatment Plan: 2x per day during the week, 1x per day on the weekends initial treatment: in [facility]
[2016-12-17] MEDS ORDERED: HALOPERIDOL LACTATE 5 MG/1 ML AMPULE IVP ONE ×2 (20:41→21:13)
[2016-12-17] MEDS ORDERED: Insulin Detemir 300unit/3ml Flexpen SUBCUT SCH (21:00)
[2016-12-17] MEDS: ACETAMINOPHEN 325 MG TABLET PO PRN (21:19)
[2016-12-18] MEDS: ACETAMINOPHEN 325 MG TABLET PO PRN (02:01)
[2016-12-18] MEDS: Piperacillin/Tazobactam Inj 3.375 GM in Sodium Chloride 0.9% 100 ML IV SCH ×4 (02:16→21:16)
[2016-12-18] MEDS: LEVOTHYROXINE 25 MCG TABLET PO SCH (04:42)
[2016-12-18 05:17] LABS: BASOPHILS # (AUTO) 0.08 10*3/UL; BASOPHILS % (AUTO) 0.6 % (0-1); EOSINOPHILS # (AUTO) 0.49 10*3/UL; EOSINOPHILS % (AUTO) 3.9 % (0-8); HEMATOCRIT 33.8 % (42.0-52.0); HEMOGLOBIN 11.2 g/dL (14.0-18.0); LYMPHOCYTES # (AUTO) 1.49 10*3/uL; MEAN CORPUSCULAR HEMOGLOBIN 30.2 PG (27-31); MEAN CORPUSCULAR HGB CONC 33.1 g/dL (33-37); MEAN CORPUSCULAR VOLUME 91.1 FL (80-90); MEAN PLATELET VOLUME 11.1 FL (7.4-12.2); MONOCYTES # (AUTO) 1.51 10*3/UL (0.3-0.8); MONOCYTES % (AUTO) 12.1 % (5-15); NEUTROPHILS # (AUTO) 8.91 10*3/UL; NEUTROPHILS % (AUTO) 71.2 % (50-80); RED BLOOD COUNT 3.71 10^6/uL (4.70-6.10)
[2016-12-18 05:34] LABS: PLATELET MORPHOLOGY COMMENT NORMAL MORPHOLOGY (NORM); RBC MORPHOLOGY COMMENT NORMAL MORPHOLOGY (NORM); WBC MORPHOLOGY COMMENT NORMAL MORPHOLOGY (NORM)
[2016-12-18 05:36] LABS: BUN/CREATININE RATIO 21.25 (6-20); CALCIUM 8.5 mg/dL (8.7-10.7)
[2016-12-18] MEDS: LOSARTAN 50 MG TABLET PO SCH (06:59)
[2016-12-18] MEDS ORDERED: Insulin Detemir 300unit/3ml Flexpen SUBCUT SCH (07:15)
[2016-12-18] MEDS: Insulin Lispro Flexpen 300 UNIT/3 ML INSULN.PEN SUBCUT SCH ×4 (07:21→21:24)
--- NOTE | 2016-12-18 07:23 | PDOC(PROG) ---
Date and Time of Service: 12/18/2016 7:20 AM Interval History: Subjective Patient is awake today, last night he was agitated again we gave him some Haldol. Today he is more awake and talking, he said his scared, he doesn't know where he is I explained to him that he is in the hospital as he broke his hip and had surgery. Objective : Data - Labs CBC and BMP: 12/18/16 04:45 12/18/16 04:45 Labs - Last 24 Hours: Laboratory Results 12/18/16 Range/Units 04:45 WBC 12.52 H (4.8-10.8) 10^3/uL RBC 3.71 L (4.70-6.10) 10^6/uL Hgb 11.2 L (14.0-18.0) g/dL Hct 33.8 L (42.0-52.0) % MCV 91.1 H (80-90) FL MCH 30.2 (27-31) PG MCHC 33.1 (33-37) g/dL RDW Std Deviation 45.2 (39-50) fL RDW Coeff of Virgilio 14.2 (11.5-14.5) % Plt Count 227 (140-350) 10*3/uL MPV 11.1 (7.4-12.2) FL Immature Gran % (Auto) 0.3 (0-5) % Neut % (Auto) 71.2 (50-80) % Lymph % (Auto) 11.9 (10-50) % [place] % (Auto) 12.1 (5-15) % Eos % (Auto) 3.9 (0-8) % Baso % (Auto) 0.6 (0-1) % Immature Gran # (Auto) 0.04 10*3/UL Neut # (Auto) 8.91 10*3/UL Lymph # (Auto) 1.49 10*3/uL [place] # (Auto) 1.51 H (0.3-0.8) 10*3/UL Eos # (Auto) 0.49 10*3/UL Baso # (Auto) 0.08 10*3/UL WBC Morphology Comment Normal morphology (NORM) Plt Morphology Comment Normal morphology (NORM) RBC Morph Comment Normal morphology (NORM) Sodium 141 (135-145) meq/L Potassium 3.3 L (3.8-5.2) meq/L Chloride 108 (98-112) meq/L Carbon Dioxide 23 (23-33) meq/L Anion Gap 10 (5-20) BUN 17 (7-22) mg/dL Creatinine 0.8 (0.70-1.50) mg/dL Estimated GFR (>60 ml/min/1.73m(2)) BUN/Creatinine Ratio 21.25 H (6-20) Glucose 106 (78-110) mg/dL Calculated Osmolality 293.0 H (267-292) mOsm/kg Calcium 8.5 L (8.7-10.7) mg/dL Objective : Exam - General General Appearance: No Acute Distress, Cooperative - Head Head Exam: Normal Inspection - Eye Eye Exam: Normal Appearance - Neck Neck Exam: Normal Inspection - Respiratory Respiratory Exam: Clear to Auscultation - Bilaterally - Cardiovascular Cardiovascular Exam: RRR - GI/Abdominal GI/Abdominal Exam: Normal Bowel Sounds, Non Tender, Non Distended, Soft - Rectal Rectal Exam: Deferred - External Exam: Deferred - Extremities Extremities Exam: Normal Inspection - Neurological Neurological Exam: Alert, CN II-XII Intact - Psychiatric Psychiatric Exam: Flat Affect Assessment and Plan - Patient Problems (1) Hip fracture Current Visit: Yes Status: Acute Comment: He is more awake today compared to yesterday and cooperative, I think we'll stop his IV fluid. Continue Lovenox for DVT prophylaxis. For lynne I wrote some Percocet just in case his pain is gets worse. Qualifiers: Encounter type: initial encounter Fracture type: closed Laterality : right Qualifier Code(s): (S72.001A) Fracture of unspecified part of neck of right femur, initial encounter for closed fracture (2) Diabetes Current Visit: No Status: Acute Comment: Blood sugar is trending down so we'll cut back more on the Levemir. If his intake improves then we may need to increase it again. Continue sliding scale. (3) Dementia with behavioral disturbance Current Visit: Yes Status: Acute Comment: I think will use Haldol IV as needed in case he is agitated but today he seems to be more cooperative. (4) Hypothyroidism Current Visit: Yes Status: Acute Comment: Same medication (5) Pneumonia Current Visit: No Status: Acute Comment: Continue Zosyn and vancomycin. Consider deescalating tomorrow. Will repeat his labs tomorrow. His white count is coming down.
[2016-12-18] MEDS: DOCUSATE 100 MG CAPSULE PO SCH ×2 (08:41→21:20)
[2016-12-18] MEDS: Potassium Chloride Tab 10 MEQ TAB PO SCH (08:41)
[2016-12-18] MEDS: Multivitamin Tab 1 TAB PO SCH (08:41)
[2016-12-18] MEDS: FERROUS SULFATE 325 MG TABLET PO SCH (08:41)
[2016-12-18] MEDS: ENOXAPARIN SODIUM 40 MG/0.4 ML SYRINGE SUBCUT SCH (08:41)
[2016-12-18] MEDS: LORATADINE 10 MG TABLET PO SCH (08:41)
[2016-12-18] MEDS: ASPIRIN 325 MG EC TABLET PO SCH ×2 (08:41→21:20)
[2016-12-18] MEDS: oxyCODONE-ACETAMINOPHEN 5-325 TAB PO PRN ×3 (08:44→23:41)
[2016-12-18] MEDS ORDERED: HALOPERIDOL LACTATE 5 MG/1 ML AMPULE IVP PRN (09:35)
--- NOTE | 2016-12-18 10:32 | ORTHO.PROG ---
Last Taken Vital Signs: Vital Signs - Last Taken Temperature 97 F 12/18/16 08:17 Pulse Rate 75 12/18/16 08:17 Respiratory Rate 17 12/18/16 08:17 Blood Pressure 138/63 12/18/16 08:17 Pulse Ox 95 12/18/16 08:17 Subjective: Denies pain, not very alert this am Objective: dressings clean and dry, in place, no evidence infection. no significant swelling. Assessment: right pertrochanteric hip fracture doing fine Plan: continue current plan
--- NOTE | 2016-12-18 10:37 | ORTHO.PROG ---
Last Taken Vital Signs: Vital Signs - Last Taken Temperature 97 F 12/18/16 08:17 Pulse Rate 75 12/18/16 08:17 Respiratory Rate 17 12/18/16 08:17 Blood Pressure 138/63 12/18/16 08:17 Pulse Ox 95 12/18/16 08:17 Subjective: Patient. Calm this morning can answer simple questions but are not convinced he understands his answer. Denies pain Objective: The [place] dressings are clean and dry in place there is very minimal swelling. Patient with palpable pulses brisk refill appears to have normal sensory exam with stimulation of lower extremities and movement. Left hip incision with there was some mild redness and question early pressure sore looks good Abnormal Lab Results (Last 24 Hours) Range/Units 12/18/16 04:45 WBC (4.8-10.8) 10^3/uL 12.52 H RBC (4.70-6.10) 10^6/uL 3.71 L Hgb (14.0-18.0) g/dL 11.2 L Hct (42.0-52.0) % 33.8 L MCV (80-90) FL 91.1 H [place] # (Auto) (0.3-0.8) 10*3/UL 1.51 H Potassium (3.8-5.2) meq/L 3.3 L BUN/Creatinine Ratio (6-20) 21.25 H Calculated Osmolality (267-292) mOsm/kg 293.0 H Calcium (8.7-10.7) mg/dL 8.5 L Laboratory Results 12/18/16 Range/Units 04:45 WBC 12.52 H (4.8-10.8) 10^3/uL RBC 3.71 L (4.70-6.10) 10^6/uL Hgb 11.2 L (14.0-18.0) g/dL Hct 33.8 L (42.0-52.0) % MCV 91.1 H (80-90) FL MCH 30.2 (27-31) PG MCHC 33.1 (33-37) g/dL RDW Std Deviation 45.2 (39-50) fL RDW Coeff of Virgilio 14.2 (11.5-14.5) % Plt Count 227 (140-350) 10*3/uL MPV 11.1 (7.4-12.2) FL Immature Gran % (Auto) 0.3 (0-5) % Neut % (Auto) 71.2 (50-80) % Lymph % (Auto) 11.9 (10-50) % [place] % (Auto) 12.1 (5-15) % Eos % (Auto) 3.9 (0-8) % Baso % (Auto) 0.6 (0-1) % Immature Gran # (Auto) 0.04 10*3/UL Neut # (Auto) 8.91 10*3/UL Lymph # (Auto) 1.49 10*3/uL [place] # (Auto) 1.51 H (0.3-0.8) 10*3/UL Eos # (Auto) 0.49 10*3/UL Baso # (Auto) 0.08 10*3/UL WBC Morphology Comment Normal morphology (NORM) Plt Morphology Comment Normal morphology (NORM) RBC Morph Comment Normal morphology (NORM) Sodium 141 (135-145) meq/L Potassium 3.3 L (3.8-5.2) meq/L Chloride 108 (98-112) meq/L Carbon Dioxide 23 (23-33) meq/L Anion Gap 10 (5-20) BUN 17 (7-22) mg/dL Creatinine 0.8 (0.70-1.50) mg/dL Estimated GFR (>60 ml/min/1.73m(2)) BUN/Creatinine Ratio 21.25 H (6-20) Glucose 106 (78-110) mg/dL Calculated Osmolality 293.0 H (267-292) mOsm/kg Calcium 8.5 L (8.7-10.7) mg/dL Vital Signs (24 hrs) Temp Pulse Resp BP Pulse Ox 12/18/16 08:17 97 F 75 17 138/63 95 12/18/16 04:50 94 12/18/16 04:47 98.2 F 85 18 150/82 89 12/18/16 00:00 98.8 F 99 20 165/83 93 12/17/16 20:13 97.7 F 68 24 139/65 96 12/17/16 17:00 98.5 F 69 16 130/68 97 12/17/16 12:59 97 F 74 18 122/63 95 Assessment: Right peritrochanteric hip fracture with a long cephalo-medullary nail. Dementia Plan: Patient is doing well today continue with DVT prophylaxis attempts at mobilization with physical therapy and occupational therapy. Pain control.
[2016-12-18] MEDS: Lactated Ringers 1,000 ML PRIMARY IV SCH (19:31)
[2016-12-18] MEDS: Insulin Detemir 300unit/3ml Flexpen SUBCUT SCH (21:25)
[2016-12-19] MEDS: Piperacillin/Tazobactam Inj 3.375 GM in Sodium Chloride 0.9% 100 ML IV SCH ×2 (04:00→08:27)
[2016-12-19 05:07] LABS: BASOPHILS # (AUTO) 0.11 10*3/UL; EOSINOPHILS # (AUTO) 0.32 10*3/UL; HEMATOCRIT 30.8 % (42.0-52.0); HEMOGLOBIN 10.2 g/dL (14.0-18.0); LYMPHOCYTES # (AUTO) 1.46 10*3/uL; MEAN CORPUSCULAR HEMOGLOBIN 30.4 PG (27-31); MEAN CORPUSCULAR HGB CONC 33.1 g/dL (33-37); MEAN CORPUSCULAR VOLUME 91.7 FL (80-90); MEAN PLATELET VOLUME 10.8 FL (7.4-12.2); MONOCYTES # (AUTO) 1.12 10*3/UL (0.3-0.8); MONOCYTES % (AUTO) 10.4 % (5-15); NEUTROPHILS # (AUTO) 7.69 10*3/UL; NEUTROPHILS % (AUTO) 71.7 % (50-80); RED BLOOD COUNT 3.36 10^6/uL (4.70-6.10)
[2016-12-19 05:08] LABS: PLATELET MORPHOLOGY COMMENT NORMAL MORPHOLOGY (NORM); RBC MORPHOLOGY COMMENT NORMAL MORPHOLOGY (NORM); WBC MORPHOLOGY COMMENT NORMAL MORPHOLOGY (NORM)
[2016-12-19 05:15] LABS: BUN/CREATININE RATIO 24.28 (6-20); CALCIUM 8.3 mg/dL (8.7-10.7)
[2016-12-19] MEDS: LEVOTHYROXINE 25 MCG TABLET PO SCH (05:22)
[2016-12-19] MEDS: Insulin Lispro Flexpen 300 UNIT/3 ML INSULN.PEN SUBCUT SCH ×4 (07:02→21:25)
[2016-12-19] MEDS: LOSARTAN 50 MG TABLET PO SCH ×2 (07:02→07:05)
[2016-12-19] MEDS: DOCUSATE 100 MG CAPSULE PO SCH ×2 (08:26→21:36)
[2016-12-19] MEDS: oxyCODONE-ACETAMINOPHEN 5-325 TAB PO PRN (08:26)
[2016-12-19] MEDS: FERROUS SULFATE 325 MG TABLET PO SCH (08:26)
[2016-12-19] MEDS: Potassium Chloride Tab 10 MEQ TAB PO SCH (08:27)
[2016-12-19] MEDS: ASPIRIN 325 MG EC TABLET PO SCH ×2 (08:27→21:35)
[2016-12-19] MEDS: LORATADINE 10 MG TABLET PO SCH (08:27)
[2016-12-19] MEDS: ENOXAPARIN SODIUM 40 MG/0.4 ML SYRINGE SUBCUT SCH (08:27)
[2016-12-19] MEDS: Multivitamin Tab 1 TAB PO SCH (08:27)
[2016-12-19] MEDS: NORMAL SALINE 10 ML SYRINGE FLUSH IVP PRN (08:28)
--- NOTE | 2016-12-19 11:39 | PDOC(PROG) ---
Interval History: Has no complaints answer simple questions resting more cooperative as per nursing staff denies any chest pain nausea or vomiting Objective : Data - Labs CBC and BMP: 12/19/16 04:50 12/19/16 04:50 Labs - Last 24 Hours: Laboratory Results 12/19/16 Range/Units 04:50 WBC 10.73 (4.8-10.8) 10^3/uL RBC 3.36 L (4.70-6.10) 10^6/uL Hgb 10.2 L (14.0-18.0) g/dL Hct 30.8 L (42.0-52.0) % MCV 91.7 H (80-90) FL MCH 30.4 (27-31) PG MCHC 33.1 (33-37) g/dL RDW Std Deviation 45.8 (39-50) fL RDW Coeff of Virgilio 14.2 (11.5-14.5) % Plt Count 261 (140-350) 10*3/uL MPV 10.8 (7.4-12.2) FL Immature Gran % (Auto) 0.3 (0-5) % Neut % (Auto) 71.7 (50-80) % Lymph % (Auto) 13.6 (10-50) % [place] % (Auto) 10.4 (5-15) % Eos % (Auto) 3.0 (0-8) % Baso % (Auto) 1.0 (0-1) % Immature Gran # (Auto) 0.03 10*3/UL Neut # (Auto) 7.69 10*3/UL Lymph # (Auto) 1.46 10*3/uL [place] # (Auto) 1.12 H (0.3-0.8) 10*3/UL Eos # (Auto) 0.32 10*3/UL Baso # (Auto) 0.11 10*3/UL WBC Morphology Comment Normal morphology (NORM) Plt Morphology Comment Normal morphology (NORM) RBC Morph Comment Normal morphology (NORM) Sodium 143 (135-145) meq/L Potassium 3.5 L (3.8-5.2) meq/L Chloride 110 (98-112) meq/L Carbon Dioxide 24 (23-33) meq/L Anion Gap 9 (5-20) BUN 17 (7-22) mg/dL Creatinine 0.7 (0.70-1.50) mg/dL Estimated GFR (>60 ml/min/1.73m(2)) BUN/Creatinine Ratio 24.28 H (6-20) Glucose 126 H (78-110) mg/dL Calculated Osmolality 299.0 H (267-292) mOsm/kg Calcium 8.3 L (8.7-10.7) mg/dL Objective : Exam - General General Appearance: Cooperative - Head Head Exam: Normal Inspection - Respiratory Respiratory Exam: Clear to Auscultation - Bilaterally, Breathing Non Labored - Cardiovascular Cardiovascular Exam: RRR, No Murmur, No Clicks - GI/Abdominal GI/Abdominal Exam: Normal Bowel Sounds, Non Distended - Extremities Extremities Exam: Normal Capillary Refill, No Clubbing Present, No Edema Present - Neurological Neurological Exam: Alert, Oriented x 3, CN II-XII Intact Assessment and Plan - Patient Problems (1) Dementia with behavioral disturbance Current Visit: Yes Status: Acute Comment: Improved most likely will be able to be discharged tomorrow to correction for continued rehabilitation secondary to his hip fracture repair (2) Hip fracture Current Visit: Yes Status: Acute Comment: Right peritrochanteric hip fracture with a long cephalo-medullary nail. Continue PT OT and anticoagulation Qualifiers: Encounter type: initial encounter Fracture type: closed Laterality : right Qualifier Code(s): (S72.001A) Fracture of unspecified part of neck of right femur, initial encounter for closed fracture (3) Pneumonia Current Visit: No Status: Acute Comment: This is questionable. Flank and Zosyn continue Rocephin IV
[2016-12-19] MEDS ORDERED: cefTRIAXone Inj 2 GM in Sodium Chloride 0.9% 100 ML IV SCH (12:00)
--- NOTE | 2016-12-19 16:34 | DCSUMMARY ---
Hospitalization Summary Hospital Course: Final Discharge Diagnosis: Current Visit Problems Problem Status Priority Diagnosed Code Dementia with behavioral disturbance Acute F03.91 Hip fracture Acute S72.009A Hypothyroidism Acute E03.9 Diagnostic Data, Laboratory Data, and Procedures of Signifigance: Laboratory Results 12/14/16 12/14/16 12/15/16 Range/Units 11:53 15:35 04:13 WBC 10.84 H 12.14 H (4.8-10.8) 10^3/uL RBC 4.64 L 4.15 L (4.70-6.10) 10^6/uL Hgb 14.0 12.6 L (14.0-18.0) g/dL Hct 42.9 38.2 L (42.0-52.0) % MCV 92.5 H 92.0 H (80-90) FL MCH 30.2 30.4 (27-31) PG MCHC 32.6 L 33.0 (33-37) g/dL RDW Std Deviation 49.2 48.4 (39-50) fL RDW Coeff of Virgilio 15.0 H 14.8 H (11.5-14.5) % Plt Count 257 250 (140-350) 10*3/uL MPV 10.7 11.4 (7.4-12.2) FL Immature Gran % (Auto) 0.3 (0-5) % Neut % (Auto) 71.9 (50-80) % Lymph % (Auto) 12.9 (10-50) % [place] % (Auto) 12.3 (5-15) % Eos % (Auto) 1.9 (0-8) % Baso % (Auto) 0.7 (0-1) % Immature Gran # (Auto) 0.04 10*3/UL Neut # (Auto) 8.72 10*3/UL Lymph # (Auto) 1.57 10*3/uL [place] # (Auto) 1.49 H (0.3-0.8) 10*3/UL Eos # (Auto) 0.23 10*3/UL Baso # (Auto) 0.09 10*3/UL Neutrophils % (Manual) 64 (50-80) % Band Neutrophils % 0 (0-10) % Lymphocytes % (Manual) 20 (10-50) % Monocytes % (Manual) 14 H (0-12) % Eosinophils % (Manual) 2 (0-8) % Basophils % (Manual) 0 (0-1) % Metamyelocytes % Not Reportable Myelocytes % Not Reportable Promyelocytes % Not Reportable Blast Cells Not Reportable WBC Morphology Comment Normal morphology Normal morphology (NORM) Plt Morphology Comment Normal morphology Normal morphology (NORM) RBC Morph Comment Normal morphology Normal morphology (NORM) PT 10.2 (9.7-11.4) secs INR 0.99 (0.00-5.90) N/A Sodium 141 141 (135-145) meq/L Potassium 4.6 4.6 (3.8-5.2) meq/L Chloride 101 108 (98-112) meq/L Carbon Dioxide 26 22 L (23-33) meq/L Anion Gap 14 11 (5-20) BUN 33 H 24 H (7-22) mg/dL Creatinine 1.3 0.9 (0.70-1.50) mg/dL Estimated GFR (>60 ml/min/1.73m(2)) BUN/Creatinine Ratio 25.38 H 26.66 H (6-20) Glucose 252 H 142 H (78-110) mg/dL Calculated Osmolality 307.0 H 297.0 H (267-292) mOsm/kg Calcium 9.5 9.0 (8.7-10.7) mg/dL Total Bilirubin 0.5 (0.3-1.2) mg/dL AST 14 L (21-57) IU/L ALT 21 (21-72) IU/L Alkaline Phosphatase 185 H (38-126) IU/L Total Protein 7.3 (6.1-8.0) g/dL Albumin 3.9 (3.5-4.8) g/dL Globulin 3.4 (2.50-4.10) g/dL Albumin/Globulin Ratio 1.10 L (1.3-2.0) mg/g Ur Collection Type Cath specimen Urine Color Yellow Urine Clarity Clear (CLEAR) Urine pH 6.0 (5.0-8.5) Ur Specific [place] 1.020 (1.005-1.030) Urine Protein 100 (NEG) mg/dl Urine Glucose (UA) >=1000 (NEG) mg/dL Urine Ketones Trace (NEG) Urine Occult Blood Negative (NEG) Urine Nitrate Negative (NEG) Urine Bilirubin Negative (NEG) Urine Urobilinogen 0.2 (0.2) EU/dL Ur Leukocyte Esterase Negative (NEG) Urine RBC 0-3 (NONE) /hpf Urine WBC None (NONE) Ur Squamous Epith Cells None (NONE) Ur Renal Epithelial Cell None (NONE) Urine Crystals None Urine Bacteria None (NONE) Urine Casts None (NONE) Urine Mucus None (NONE) Urine Trichomonas None (NONE) Urine Yeast None (NONE) Ur Culture Indicated? Culture not set Blood Type O NEGATIVE Antibody Screen Negative 12/16/16 12/17/16 12/18/16 Range/Units 04:18 04:29 04:45 WBC 13.49 H 14.15 H 12.52 H (4.8-10.8) 10^3/uL RBC 3.85 L 3.79 L 3.71 L (4.70-6.10) 10^6/uL Hgb 11.7 L 11.6 L 11.2 L (14.0-18.0) g/dL Hct 35.3 L 34.9 L 33.8 L (42.0-52.0) % MCV 91.7 H 92.1 H 91.1 H (80-90) FL MCH 30.4 30.6 30.2 (27-31) PG MCHC 33.1 33.2 33.1 (33-37) g/dL RDW Std Deviation 47.1 46.5 45.2 (39-50) fL RDW Coeff of Virgilio 14.4 14.3 14.2 (11.5-14.5) % Plt Count 238 186 227 (140-350) 10*3/uL MPV 11.1 10.8 11.1 (7.4-12.2) FL Immature Gran % (Auto) 0.4 0.3 0.3 (0-5) % Neut % (Auto) 78.0 69.1 71.2 (50-80) % Lymph % (Auto) 9.2 L 11.7 11.9 (10-50) % [place] % (Auto) 10.4 13.5 12.1 (5-15) % Eos % (Auto) 1.2 4.8 3.9 (0-8) % Baso % (Auto) 0.8 0.6 0.6 (0-1) % Immature Gran # (Auto) 0.05 0.04 0.04 10*3/UL Neut # (Auto) 10.53 9.78 8.91 10*3/UL Lymph # (Auto) 1.24 1.66 1.49 10*3/uL [place] # (Auto) 1.40 H 1.91 H 1.51 H (0.3-0.8) 10*3/UL Eos # (Auto) 0.16 0.68 0.49 10*3/UL Baso # (Auto) 0.11 0.08 0.08 10*3/UL Neutrophils % (Manual) (50-80) % Band Neutrophils % (0-10) % Lymphocytes % (Manual) (10-50) % Monocytes % (Manual) (0-12) % Eosinophils % (Manual) (0-8) % Basophils % (Manual) (0-1) % Metamyelocytes % Myelocytes % Promyelocytes % Blast Cells WBC Morphology Comment Normal morphology Normal morphology Normal morphology (NORM) Plt Morphology Comment Normal morphology Normal morphology Normal morphology (NORM) RBC Morph Comment Normal morphology Normal morphology Normal morphology ( NORM) PT (9.7-11.4) secs INR (0.00-5.90) N/A Sodium 137 139 141 (135-145) meq/L Potassium 4.2 3.8 3.3 L (3.8-5.2) meq/L Chloride 107 107 108 (98-112) meq/L Carbon Dioxide 24 22 L 23 (23-33) meq/L Anion Gap 6 10 10 (5-20) BUN 19 17 17 (7-22) mg/dL Creatinine 0.9 0.7 0.8 (0.70-1.50) mg/dL Estimated GFR (>60 ml/min/1.73m(2)) BUN/Creatinine Ratio 21.11 H 24.28 H 21.25 H (6-20) Glucose 179 H 123 H 106 (78-110) mg/dL Calculated Osmolality 289.0 290.0 293.0 H (267-292) mOsm/kg Calcium 8.4 L 8.4 L 8.5 L (8.7-10.7) mg/dL Total Bilirubin (0.3-1.2) mg/dL AST (21-57) IU/L ALT (21-72) IU/L Alkaline Phosphatase (38-126) IU/L Total Protein (6.1-8.0) g/dL Albumin (3.5-4.8) g/dL Globulin (2.50-4.10) g/dL Albumin/Globulin Ratio (1.3-2.0) mg/g Ur Collection Type Urine Color Urine Clarity (CLEAR) Urine pH (5.0-8.5) Ur Specific [place] (1.005-1.030) Urine Protein (NEG) mg/dl Urine Glucose (UA) (NEG) mg/dL Urine Ketones (NEG) Urine Occult Blood (NEG) Urine Nitrate (NEG) Urine Bilirubin (NEG) Urine Urobilinogen (0.2) EU/dL Ur Leukocyte Esterase (NEG) Urine RBC (NONE) /hpf Urine WBC (NONE) Ur Squamous Epith Cells (NONE) Ur Renal Epithelial Cell (NONE) Urine Crystals Urine Bacteria (NONE) Urine Casts (NONE) Urine Mucus (NONE) Urine Trichomonas (NONE) Urine Yeast (NONE) Ur Culture Indicated? Blood Type Antibody Screen 12/19/16 Range/Units 04:50 WBC 10.73 (4.8-10.8) 10^3/uL RBC 3.36 L (4.70-6.10) 10^6/uL Hgb 10.2 L (14.0-18.0) g/dL Hct 30.8 L (42.0-52.0) % MCV 91.7 H (80-90) FL MCH 30.4 (27-31) PG MCHC 33.1 (33-37) g/dL RDW Std Deviation 45.8 (39-50) fL RDW Coeff of Virgilio 14.2 (11.5-14.5) % Plt Count 261 (140-350) 10*3/uL MPV 10.8 (7.4-12.2) FL Immature Gran % (Auto) 0.3 (0-5) % Neut % (Auto) 71.7 (50-80) % Lymph % (Auto) 13.6 (10-50) % [place] % (Auto) 10.4 (5-15) % Eos % (Auto) 3.0 (0-8) % Baso % (Auto) 1.0 (0-1) % Immature Gran # (Auto) 0.03 10*3/UL Neut # (Auto) 7.69 10*3/UL Lymph # (Auto) 1.46 10*3/uL [place] # (Auto) 1.12 H (0.3-0.8) 10*3/UL Eos # (Auto) 0.32 10*3/UL Baso # (Auto) 0.11 10*3/UL Neutrophils % (Manual) (50-80) % Band Neutrophils % (0-10) % Lymphocytes % (Manual) (10-50) % Monocytes % (Manual) (0-12) % Eosinophils % (Manual) (0-8) % Basophils % (Manual) (0-1) % Metamyelocytes % Myelocytes % Promyelocytes % Blast Cells WBC Morphology Comment Normal morphology (NORM) Plt Morphology Comment Normal morphology (NORM) RBC Morph Comment Normal morphology (NORM) PT (9.7-11.4) secs INR (0.00-5.90) N/A Sodium 143 (135-145) meq/L Potassium 3.5 L (3.8-5.2) meq/L Chloride 110 (98-112) meq/L Carbon Dioxide 24 (23-33) meq/L Anion Gap 9 (5-20) BUN 17 (7-22) mg/dL Creatinine 0.7 (0.70-1.50) mg/dL Estimated GFR (>60 ml/min/1.73m(2)) BUN/Creatinine Ratio 24.28 H (6-20) Glucose 126 H (78-110) mg/dL Calculated Osmolality 299.0 H (267-292) mOsm/kg Calcium 8.3 L (8.7-10.7) mg/dL Total Bilirubin (0.3-1.2) mg/dL AST (21-57) IU/L ALT (21-72) IU/L Alkaline Phosphatase (38-126) IU/L Total Protein (6.1-8.0) g/dL Albumin (3.5-4.8) g/dL Globulin (2.50-4.10) g/dL Albumin/Globulin Ratio (1.3-2.0) mg/g Ur Collection Type Urine Color Urine Clarity (CLEAR) Urine pH (5.0-8.5) Ur Specific [place] (1.005-1.030) Urine Protein (NEG) mg/dl Urine Glucose (UA) (NEG) mg/dL Urine Ketones (NEG) Urine Occult Blood (NEG) Urine Nitrate (NEG) Urine Bilirubin (NEG) Urine Urobilinogen (0.2) EU/dL Ur Leukocyte Esterase (NEG) Urine RBC (NONE) /hpf Urine WBC (NONE) Ur Squamous Epith Cells (NONE) Ur Renal Epithelial Cell (NONE) Urine Crystals Urine Bacteria (NONE) Urine Casts (NONE) Urine Mucus (NONE) Urine Trichomonas (NONE) Urine Yeast (NONE) Ur Culture Indicated? Blood Type Antibody Screen History and Physical pertinent to Admission: Past Medical History Medical History: 1. Diabetes on insulin. 2. Dementia. 3. Hypertension. 4. Hypothyroidism Surgical History: 1. Surgery for displaced left subtrochanteric hip fracture in May 2016 Pertinent Family History: unknown Tobacco Use: Former Smoker Substance Use Type: None Alcohol Use: None Course of Hospitalization: This very nice 81-year-old gentleman with past medical history significant for diabetes, severe dementia, hypertension and hypothyroidism, lives at [facility] he was found to have a right intratrochanteric fracture and was admitted this was repaired by Dr. Schneider. Postop he had some delirium which was handled by Dr. Mcclain with some Haldol and Ativan he seems to be doing much better and more coherent and alert. There is also a possibility of aspiration he was treated with Vanco and Zosyn patient does not look sick he is not coughing we will transition him to Augmentin and Flagyl for a total of 5 days more. We will be leaving in his Das since he is still not totally ambulatory. Continue anticoagulation which will be managed by Dr. Schneider as well. His Levemir was reduced to 16 units at night since he has been having lower blood sugars here in the hospital is 20 units 3 times a day was discontinued On the date of discharge, the patient was examined: Gen.: No acute distress, alert, nontoxic Heart: Regular rate and rhythm, no murmurs, clicks, gallops, or rubs Lungs: Clear to auscultation bilaterally, breathing is nonlabored Abdomen/GI: Normal tones on auscultation, soft, nontender, nondistended Musculoskeletal/extremities: No clubbing, cyanosis, or edema Vitals reviewed and are listed below Vital Signs (24 hrs) Temp Pulse Pulse Resp BP Pulse Ox 12/19/16 13:00 98.4 F 83 20 118/60 96 12/19/16 09:00 97.7 F 78 16 108/66 91 12/19/16 05:00 98.1 F 85 20 121/76 93 12/19/16 03:22 94 12/19/16 01:00 98.4 F 104 H 20 146/76 93 12/18/16 20:26 98.4 F 84 20 133/69 94 12/18/16 19:00 68 101 H 16 12/18/16 16:59 97.9 F 101 H 16 123/68 90 Assessment and Plan: 1. As per discharge assessments above 2. Disposition: [facility] 3. Condition on discharge, stable and improved. 4. Diet: regular diet 5. Activities: resume normal activities 6. Follow-Up: 1. PCP 2. 7. Medications at the Time of Discharge: Home Medications Medication Instructions Recorded Confirmed Type Acetaminophen [Tylenol] 1 - 2 tab PO Q4-6H PRN tab 11/15/14 12/14/16 History Losartan Potassium 1 tab PO QD tab 03/06/15 12/14/16 History Dextran 70/Hypromellose/Pf [Tears 1 drp OP QID PRN #1 bottle 09/16/15 12/14/16 Clinic Naturale Free Drops] Tamsulosin HCl 1 cap PO QHS cap 12/05/15 12/14/16 History Loratadine 1 tab PO QD tab 01/07/16 12/14/16 History Docusate Sodium [Colace] 1 cap PO BID cap 06/09/16 12/14/16 History Ferrous Sulfate [Feosol] 325 mg PO DAILY tab 06/09/16 12/14/16 Rx HYDROcodone/APAP 5/325 Tab [[place] 1 - 2 tab PO Q4H PRN #25 tab 06/09/16 Rx 5/325 Tab] Magnesium Hydroxide [Milk of 30 ml PO QD PRN ml 06/09/16 12/14/16 History Magnesia] Multivitamin Tab [Thera Tab] 1 tab PO DAILY tab 06/09/16 12/14/16 Rx Sitagliptin Phosphate [Januvia] 100 mg PO DAILY #1 tablet 06/09/16 12/14/16 Rx Levothyroxine Sodium 1 tab PO DAILY #30 tab 08/19/16 12/14/16 Clinic Ranitidine HCl 150 mg PO QD #30 cap 09/29/16 12/14/16 Clinic Mupirocin Ointment 2% [Bactroban 22 applic TOPICAL PRN PRN 12/14/16 12/14/16 History Ointment 2%] Amoxicill/Clav 875/125mg 1 tab PO BID #10 tab 12/19/16 Rx [Augmentin 875/125mg] Enoxaparin Inj [Lovenox Inj] 40 mg SUBCUT DAILY syringe 12/19/16 Rx Insulin Detemir Flexpen Inj 16 unit SUBCUT BEDTIME insuln.pen 12/19/16 Rx [Levemir Flexpen Inj] metroNIDAZOLE Tab [Flagyl Tab] 500 mg PO TID #14 tab 12/19/16 Rx 8. Time, care, counseling and coordination of care for this discharge is greater than 30 minutes. Exam - Vitals Vital Signs: Vital Signs Temperature 98.4 F Temperature Source Temporal Artery Scan Pulse Rate [Apical] 68 Pulse Rate [Pulse Oximeter] 83 Pulse Rate 66 Respiratory Rate 20 Blood Pressure [Right Arm] 118/60 Blood Pressure 140/73 Pulse Ox 96 Oxygen Flow Rate 2 Oxygen Flow Rate 2 Oxygen Delivery Method Nasal Cannula Height 5 ft 11 in Weight 77.292 kg Patient Problems - Patient Problem List (1) Dementia with behavioral disturbance Current Visit: Yes Status: Acute (2) Hip fracture Current Visit: Yes Status: Acute Qualifiers: Encounter type: initial encounter Fracture type: closed Laterality : right Qualifier Code(s): (S72.001A) Fracture of unspecified part of neck of right femur, initial encounter for closed fracture (3) Pneumonia Current Visit: No Status: Acute
--- NOTE | 2016-12-19 21:08 | ORTHO.PROG ---
Last Taken Vital Signs: Vital Signs - Last Taken Temperature 98.4 F 12/19/16 20:24 Pulse Rate 100 12/19/16 20:24 Respiratory Rate 22 12/19/16 20:24 Blood Pressure 146/76 12/19/16 20:24 Pulse Ox 91 12/19/16 20:24 Subjective: OK with simple questions, not answered correctly frequently Objective: Dressing/leg dry no evidence infection Laboratory Results 12/19/16 Range/Units 04:50 WBC 10.73 (4.8-10.8) 10^3/uL RBC 3.36 L (4.70-6.10) 10^6/uL Hgb 10.2 L (14.0-18.0) g/dL Hct 30.8 L (42.0-52.0) % MCV 91.7 H (80-90) FL MCH 30.4 (27-31) PG MCHC 33.1 (33-37) g/dL RDW Std Deviation 45.8 (39-50) fL RDW Coeff of Virgilio 14.2 (11.5-14.5) % Plt Count 261 (140-350) 10*3/uL MPV 10.8 (7.4-12.2) FL Immature Gran % (Auto) 0.3 (0-5) % Neut % (Auto) 71.7 (50-80) % Lymph % (Auto) 13.6 (10-50) % Gray % (Auto) 10.4 (5-15) % Eos % (Auto) 3.0 (0-8) % Baso % (Auto) 1.0 (0-1) % Immature Gran # (Auto) 0.03 10*3/UL Neut # (Auto) 7.69 10*3/UL Lymph # (Auto) 1.46 10*3/uL Gray # (Auto) 1.12 H (0.3-0.8) 10*3/UL Eos # (Auto) 0.32 10*3/UL Baso # (Auto) 0.11 10*3/UL WBC Morphology Comment Normal morphology (NORM) Plt Morphology Comment Normal morphology (NORM) RBC Morph Comment Normal morphology (NORM) Sodium 143 (135-145) meq/L Potassium 3.5 L (3.8-5.2) meq/L Chloride 110 (98-112) meq/L Carbon Dioxide 24 (23-33) meq/L Anion Gap 9 (5-20) BUN 17 (7-22) mg/dL Creatinine 0.7 (0.70-1.50) mg/dL Estimated GFR (>60 ml/min/1.73m(2)) BUN/Creatinine Ratio 24.28 H (6-20) Glucose 126 H (78-110) mg/dL Calculated Osmolality 299.0 H (267-292) mOsm/kg Calcium 8.3 L (8.7-10.7) mg/dL Vital Signs (24 hrs) Temp Pulse Resp BP Pulse Ox 12/19/16 20:24 98.4 F 100 22 146/76 91 12/19/16 19:00 20 12/19/16 16:45 98.8 F 99 20 142/66 90 12/19/16 13:00 98.4 F 83 20 118/60 96 12/19/16 09:00 97.7 F 78 16 108/66 91 12/19/16 05:00 98.1 F 85 20 121/76 93 12/19/16 03:22 94 12/19/16 01:00 98.4 F 104 H 20 146/76 93 Assessment: right cephallomedullary nail for proximal femor fracture Plan: Continue current plan
[2016-12-19] MEDS: Insulin Detemir 300unit/3ml Flexpen SUBCUT SCH (21:35)
[2016-12-19] MEDS: Amoxicill/Clav 875/125mg Tab 1 TAB TAB PO SCH (21:35)
[2016-12-20] MEDS: LEVOTHYROXINE 25 MCG TABLET PO SCH ×2 (05:52→05:54)
[2016-12-20] MEDS: LOSARTAN 50 MG TABLET PO SCH (06:51)
--- NOTE | 2016-12-20 07:18 | PT.PROG ---
Progress Note Progress Note: S: Pt. is confused today and reluctant to get out of bed. O: Treatment consisted of bed mobility and sit to stands with max assist x 2. Pt. then performed static standing x 2 min with max assist x 2. Stand pivot transfer to the [facility]. Pt. was then transferred back to bed with max assist x 2 and placed supine in bed. A: Pt. was more alert today than he has been for the last several days. He does require assist x 2-3 people for all mobility and transfers. He is wearing his compression stocking, dressing on L thigh is intact. P: Continue per POC to increase strength and activity tolerance. Payal Drake, [employer]
--- NOTE | 2016-12-20 07:25 | PT.PROG ---
Progress Note Progress Note: S: Pt. has no new c/o today. Nursing states they would like to get him up in the shower chair O: Treatment consisted of functional activities including bed mobility and transfer with stand pivot from EOB to shower chair. Pt. did require mod to max assist to sit EOB. He was able to sit for approx 10 seconds unsupported. Pt. left with nursing for shower. A: Pt. continues to require assist of multiple staff members for transfers and mobility. Pt's mental status does make progress slow. He would continue to benefit from skilled therapeutic intervention to increase mobility. P: Continue per POC to increase strength and activity tolerance. Payal Drake, SURGICAL MANAGER
[2016-12-20] MEDS: Insulin Lispro Flexpen 300 UNIT/3 ML INSULN.PEN SUBCUT SCH (08:21)
[2016-12-20] MEDS: DOCUSATE 100 MG CAPSULE PO SCH (08:24)
[2016-12-20] MEDS: Amoxicill/Clav 875/125mg Tab 1 TAB TAB PO SCH (08:24)
[2016-12-20] MEDS: Multivitamin Tab 1 TAB PO SCH (08:24)
[2016-12-20] MEDS: FERROUS SULFATE 325 MG TABLET PO SCH (08:24)
[2016-12-20] MEDS: Potassium Chloride Tab 10 MEQ TAB PO SCH (08:24)
[2016-12-20] MEDS: LORATADINE 10 MG TABLET PO SCH (08:25)
[2016-12-20] MEDS: ENOXAPARIN SODIUM 40 MG/0.4 ML SYRINGE SUBCUT SCH (08:25)
[2016-12-20] MEDS: ASPIRIN 325 MG EC TABLET PO SCH (08:25)
[2016-12-20 08:43] VITALS: RESP 18; TEMP 97.1
[2016-12-20] MEDS ORDERED: metroNIDAZOLE Tab 500 MG TAB PO SCH (21:00)
== END 2016-12-20 10:45 | DRG 480 ==
LOC: ER 11:11 → MED/SURG 15:45 → OPS 12-15 11:32 → MED/SURG 12-15 16:35
PROVIDERS: ADMIT Internal Medicine; ATTEND Internal Medicine
PROC: 0QH636Z Insertion of Intramedullary Internal Fixation Device into Right Upper Femur, Percutaneous Approach (ICD-10-PCS; principal; 2016-12-15 13:00)
DX: S72.001A Fracture of unspecified part of neck of right femur, initial encounter for closed fracture (principal); W18.30XA Fall on same level, unspecified, initial encounter; G30.9 Alzheimer's disease, unspecified; F02.80 Dementia in other diseases classified elsewhere, unspecified severity, without behavioral disturbance, psychotic disturbance, mood disturbance, and anxiety; S72.21XA Displaced subtrochanteric fracture of right femur, initial encounter for closed fracture; J18.9 Pneumonia, unspecified organism; F03.91 Unspecified dementia, unspecified severity, with behavioral disturbance; E03.9 Hypothyroidism, unspecified; E11.9 Type 2 diabetes mellitus without complications
CPT/HCPCS: 36415; 71010; 72192; 73502; 73552; 73562; 73590; 73600; 76001; 80048; 80053; 81001; 81003; 82948; 85007; 85025; 85610; 86850; 86900; 86901; 87040; 87641; 93005; 93010; 94150; 94761; 97161; 97530; 99284; A4216; J0690; J0696; J1170; J1630; J1650; J2001; J2060; J2250; J2270; J2543; J3010; J3370; J7030; J7050; J7120

== ENCOUNTER → 2016-12-30 | Outpatient (CLI) | payer OTHER ==
--- NOTE | 2016-12-31 09:18 | DI ---
XR HIP COMPLETE MIN 2VW U/L,12/30/2016 2:58 PM: Clinical History: A subtrochanteric fracture of the right femur Previous Exam: 12/14/16 Findings: 3 views of the right hip are obtained, and demonstrate a new right dynamic compression screw within t he right femoral neck. There is mild osteopenia. Overlying skin dory are noted. Impression: Status post dynamic compression screw through a right subtrochanteric fracture.
== END ==
LOC: ORTHO 15:27
PROVIDERS: ATTEND Orthopaedic Surgery
DX: S72.21 Displaced subtrochanteric fracture of right femur (principal)
CPT/HCPCS: 73502

== ENCOUNTER 2017-01-17 17:20 | Emergency (ER) | payer OTHER ==
[2017-01-17] MEDS ORDERED: ACETAMINOPHEN 325 MG TABLET PO ONE (17:44)
[2017-01-17 17:48] VITALS: RESP 16; TEMP 97.4
[2017-01-17] MEDS ORDERED: DIPH,PERTUSS,TET(ADACEL) VAC/PF 0.5 ML (Tdap) IM ONE ×2 (18:04→18:05)
--- NOTE | 2017-01-17 18:35 | PDOC ---
General Adult HPI - General Chief Complaint: Head Problem / Injury Stated Complaint: fall from w/c Date Seen by Provider: 01/17/17 Time Seen by Provider: 17:20 Source: POSITIVE: EMS, shelter records Exam Limitations: POSITIVE: Other (Alzheimer's, dementia. Information limited to EMS and care home records) - History of Present Illness Initial Comment: Patient is an 82-year-old male patient presenting to the emergency department with chief complaint of a fall in a care home. The patient is currently in a nursing facility secondary to advanced Alzheimer's. Per care home report the patient was ambulating when he had a mechanical fall striking the left side of his head. There is no significant loss of consciousness the patient has denied any pain in his hips or neck. He has a star-shaped laceration on the left frontal aspect of his scalp. There is no significant change in his baseline mental status per care home. At time of examination the patient describes pain along his left temporal area as well as a headache. He denies any neck pain chest pain shortness of breath hip pain and knee pain or pain in his wrists however this is limited secondary to patient's mental status. Have you received a tetanus shot in the past 10 years?: Unknown Body Location Affected: REPORTS: Head - Patient Home Medications Home Medications: Home Medications Acetaminophen [Tylenol] 1 - 2 tab PO Q4-6H PRN tab 11/15/14 Losartan Potassium 1 tab PO QD tab 03/06/15 Dextran 70/Hypromellose/Pf [Tears Naturale Free Drops] 1 drp OP QID PRN #1 bottle 09/16/15 Tamsulosin HCl 1 cap PO QHS cap 12/05/15 Loratadine 1 tab PO QD tab 01/07/16 Docusate Sodium [Colace] 1 cap PO BID cap 06/09/16 Ferrous Sulfate [Feosol] 325 mg PO DAILY tab 06/09/16 Magnesium Hydroxide [Milk of Magnesia] 30 ml PO QD PRN ml 06/09/16 Multivitamin Tab [Thera Tab] 1 tab PO DAILY tab 06/09/16 Sitagliptin Phosphate [Januvia] 100 mg PO DAILY #1 tablet 06/09/16 Levothyroxine Sodium 1 tab PO DAILY #30 tab 08/19/16 Hydrocortisone 1 applic TOPICAL QD bottle 09/28/16 Ranitidine HCl 150 mg PO QD #30 cap 09/29/16 Mupirocin Ointment 2% [Bactroban Ointment 2%] 22 applic TOPICAL PRN PRN Buprenorphine [Butrans] 1 each TRANSDERM WEEKLY patch 12/25/16 Insulin Aspart [Novolog Flexpen] 10 unit SUBCUT AC PRN #1 unit 12/30/16 Insulin Detemir [Levemir Flextouch] 25 unit SUBCUT BEDTIME #1 insuln.pen - Patient Allergies Allergies/Adverse Reactions: Allergies Allergy/AdvReac Type Severity Reaction Status Date / Time lactose Allergy DIARRHEA Verified 01/17/17 17:28 Past Medical History - heen HEENT History: Hard of Hearing Additional HEENT History: None noted in pt's medical records via [facility] Cardiovascular History: Hypertension, Hyperlipidemia Respiratory History: Pneumonia Additional Respiratory History: None noted in pt's medical records via [facility] Gastrointestinal History: GERD, Colitis, Other (please comment) Additional Gastrointestinal History: toxic gastroenteritis via pt medical records from [facility]. lactose intolerance Genitourinary History: Recurrent UTI, Incontinence, Other (please comment) Additional Genitourinary History: URINARY RETENTION, BPH Endocrine History: Type 2 Diabetes (oral), Type 2 Diabetes (insulin), Hypothyroidism Musculoskeletal History: Osteoarthritis, Other (please comment) Prosthesis or Implant: Yes (LEFT HIP) Additional Musculoskeletal History: LEFT HIP FRACTURE WITH SURGICAL REPAIR Neurological History: TIA, Dementia Blood Disorders: Denies History Additional Blood Disorders History: None noted in pt's medical records via [facility] Psychiatric History: Anxiety Disorders, OCD History of Sexually Transmitted Diseases: (unk) Cancer History: Denies History In Past Year Been Physically Harmed or Verbally Threatened: No History of MDRO: Yes Type of MDRO: Unknown History of Other Communicable Diseases: (unk) Tobacco Use: Unknown If Ever Smoked Alcohol Use: None Substance Use Type: None Previous Surgical History: Yes Type / Date of Surgery: left femur fracture repair (06/09/2016) Anesthesia Reactions: (UNKNOWN) Malignant Hyperthermia: (UNKNOWN) Significant Family History: Other (please comment) Additional Family History: UNKNOWN ROS - Limitations ROS Limitations: Mental Impairment, Other (please comment) (Review of systems Limited secondary to patient mental status.) General Adult Exam - General Appearance General Appearance: POSITIVE: Alert, Cooperative, No Acute Distress - HEENT HEENT: POSITIVE: Pharynx Inspect. Nml, PERRL, Other (A star-shaped laceration on the left frontal temporal region of the scalp approximately 4 cm in total length. Non-gaping. Bleeding controlled at time of examination.) - Pupils Pupil Size: 3 mm: Bilateral, 4 mm: Bilateral - Neck Neck: POSITIVE: Normal Inspection - Respiratory Respiratory: POSITIVE: No Respiratory Distress, Breath Sounds Normal, Chest Non- Tender - Cardiovascular Cardiovascular: POSITIVE: Regular Rate & Rhythm, No Murmur - Abdomen Abdomen: Soft: (All Quadrants), Denies Tenderness: (All Quadrants), No Distention: (All Quadrants), No Rigidity: (All Quadrants) - Back Back: POSITIVE: Normal Inspection - Skin Skin: POSITIVE: Normal Color, Warm, Dry, No Rash - Extremities Extremity: Non-Tender: (All Extremities), Normal ROM: (All Extremities) Additional Extremities Details: Good employer relations representative strength bilaterally 5 out of 5 flexion extension the upper and lower extremities bilaterally - Neurological / Psychological Neurological: POSITIVE: Disoriented To Place, Disoriented To Time Reflexes: Patellar (R): 2+, Patellar (L): 2+ General Adult Progress - Results Reviewed by me Xrays/CTs/US Reviewed by me: Yes Discussed with Radiologist: Yes Radiology Findings: CT the head without contrast: No acute intracranial abnormalities senescent changes including old stroke noted. X-ray left hip: No acute fracture dislocation or hardware abnormality. - Patient's Progress MDM / ED Course: Patient was evaluated in the emergency department. The laceration was irrigated with normal saline at the bedside and closed with Dermabond with close approximation. Patient tolerated procedure well. CT the head without contrast did not reveal any acute intracranial abnormalities. Chronic changes were noted. X-ray of the left hip did not reveal any acute fracture dislocation or hardware abnormality. Patient tolerated food in the emergency department. The patient was found to have an elevated glucose with his history of diabetes I did opt to give him 10 units of NovoLog prior to discharge. I see no obvious abnormality on the patient's examination the patient should be reevaluated next 2-3 days. I advised strong caution against leaving the patient alone for long periods of time given his history of significant dementia. Patient Care Time - Estimated PCT Patient Care Time (In Minutes): 210 Vital Signs - Recent Vital Signs Vital Signs: Vital Signs (Last 8 hours) Temp Pulse Resp BP Pulse Ox 01/17/17 17:30 97.4 F 83 16 145/76 96 Discharge Clinical Impression: Fall, Closed TBI (traumatic brain injury), Laceration of scalp, Hyperglycemia Condition: Good Patient Instructions Given at Discharge: Laceration (ED), Concussion (ED) Additional Instructions: Adhesive glue will break down after 3-5 days. Keep covered with a Band-Aid. Follow Up With: NARINDER BANDA [Primary Care Provider] -
--- NOTE | 2017-01-17 18:57 | DI ---
CT HEAD SCAN WITHOUT IV CONTRAST, 01/17/2017 5:45 PM : Clinical History: Head trauma. The patient fell. The patient has dementia. Previous Exam: 06/03/2016; 06/06/2016. Scans are obtained from the foramen magnum to the vertex without IV contrast. The fourth ventricle is of normal size, shape, position and contour. The third and lateral ventricles are moderately dilated but are otherwise normal. There is no evidence of an acute intracranial hemor rhagic focus. 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 There is moderately severe to severe cerebellar and severe cerebral atrophy. There are no extracereb ral mantles or shift of the midline structures. Bone window evaluation is normal. The paranasal sinus es are normal. READIN. There is no evidence of an acute intracranial hemorrhagic focus. 2. 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 Ther e has been no interval change since the initial study from 06/03/2016. 3. Moderately severe cerebellar and severe cerebral atrophy.
[2017-01-17] MEDS ORDERED: INSULIN REGULAR, HUMAN 100 UNIT/1 ML - 3 ML SUBCUT ONE (20:24)
--- NOTE | 2017-01-17 20:32 | DI ---
AP VIEW OF THE LEFT HIP AND FEMUR, 01/17/2017 5:44 PM: Clinical History: Injury. The patient fell. Clinically, the patient is not symptomatic in this region and has full range of motion according to the attending ER physician. Previous Exam: 06/12/2016. An AP view of the left hip and femur are submitted. The patient is status post ORIF of a comminuted f racture of the neck and subtrochanteric region of the left hip. There are 3 cerclage wires over the p roximal femur. Callus formation is present in the proximal femur and the fracture lucency seen on the previous study has healed. No acute fracture is identified. The remainder of the femur is intact. Reading: Status post ORIF of fractures of the subtrochanteric region and proximal femur. No acute fracture is identified.
== END 2017-01-17 20:53 | disposition home or self-care (01) ==
LOC: ER 17:20
DX: S01.01XA Laceration without foreign body of scalp, initial encounter (principal); S06.9X0A Unspecified intracranial injury without loss of consciousness, initial encounter; E11.65 Type 2 diabetes mellitus with hyperglycemia; R51 Headache; Z79.4 Long term (current) use of insulin; W05.0XXA Fall from non-moving wheelchair, initial encounter; Y92.129 Unspecified place in nursing home as the place of occurrence of the external cause
CPT/HCPCS: 70450; 73501; 90471; 96372; 99283 ×2; J1815; 12001

== ENCOUNTER → 2017-02-11 | Outpatient (CLI) | payer OTHER ==
--- NOTE | 2017-02-11 10:34 | DI ---
XR HIP COMPLETE MIN 2VW U/L,02/11/2017 9:33 AM: Clinical History: Right femoral fracture. Previous Exam: December 30, 2016 Findings: AP view of the pelvis as well as AP view of the right hip and crosstable lateral views of the right h ip are obtained, and demonstrate a stable IM denis and dynamic compression screw. A nonobstructive bowel gas pattern is seen. No pathologic calcifications are noted. A few vascular ca lcifications are seen. Impression: Postsurgical changes as above unchanged from the prior exam.
== END ==
LOC: ORTHO 09:48
PROVIDERS: ATTEND Orthopaedic Surgery
DX: S72.21XD Displaced subtrochanteric fracture of right femur, subsequent encounter for closed fracture with routine healing (principal); Z98.890 Other specified postprocedural states
CPT/HCPCS: 73502; G0463